=== PATIENT | female | born 1955 | race Caucasian/White ===

== ENCOUNTER 2016-11-19 16:15 | Observation (INO) | payer MEDICARE ==
[2016-11-19] MEDS ORDERED: Aspirin Low Dose CHEW TAB* 81 MG PO ONE (16:34)
[2016-11-19 17:03] LABS: Albumin 3.8 g/dL (3.2-5.2); BUN/Creatinine Ratio 23.9 (8-20); Calcium 9.3 mg/dL (8.6-10.3); EGFR African American 80.4 (>60); EGFR Non-African American 62.5 (>60); Globulin 3.5 g/dL (2-4); Potassium 4.4 mmol/L (3.5-5.0); Total Bilirubin 0.5 mg/dL (0.2-1.0); Total Protein 7.3 g/dL (6.4-8.9)
--- NOTE | 2016-11-19 17:07 | RAD ---
Indication: Chest pain. Single frontal view of the chest performed at 0446 hours was reviewed. Comparison is made with previous exam dated April 28, 2013. No mediastinal shift is noted. Heart is of normal size and configuration. Lung evans appear clear. Patient is status post transsternal thoracotomy. Lung evans are clear IMPRESSION: NO ACTIVE CARDIOPULMONARY DISEASE IS NOTED.
[2016-11-19 17:08] LABS: Troponin I 0.04 ng/mL (<0.04)
[2016-11-19 18:04] LABS: Hematocrit 43 % (35-47); Hemoglobin 14.6 g/dl (12.0-16.0); Mean Corpuscular HGB Conc 34 g/dl (31-36); Mean Corpuscular Hemoglobin 32 pg (27-31); Mean Corpuscular Volume 95 fL (80-97); Mean Platelet Volume 8 um3 (7.4-10.4); Red Blood Count 4.57 10^6/ul (4.0-5.4); Red Cell Distribution Width 14 % (10.5-15)
[2016-11-19] MEDS ORDERED: Acetaminophen TAB* 325 MG PO PRN (18:21)
[2016-11-19] MEDS ORDERED: ALPRAZolam TAB* 0.25 MG PO PRN (18:21)
[2016-11-19] MEDS: HYDROcodone/ACETAMIN 5-325 MG* 1 TAB PO PRN ×2 (18:37→23:38)
[2016-11-19] MEDS ORDERED: tiZANidine TAB* 2 MG PO SCH (19:00)
[2016-11-19] MEDS ORDERED: Enoxaparin(*) 40 MG/0.4 ML SYR SUBCUT SCH (19:00)
[2016-11-19] MEDS: tiZANidine TAB* 2 MG PO PRN (19:02)
--- NOTE | 2016-11-19 19:16 | ED ---
Laverne Gusman Thomas, scribed for Molina Sandhu MD on 11/19/16 at 1718 . HPI Chest Pain - HPI Summary HPI Summary: The pt is a 61 y/o F referred from her framing inspector (Dr. Reddy) after a test performed today revealed new onset first degree LBBB. In the ED, the pt c/o intermittent CP rated 5/10 that began two days ago. The pain is described as "pressure" and the pain radiates to the L arm, hand, shoulder, neck, and jaw. Her pain has worsened since yesterday (now it is "deeper"). Her CP is worsened noticeably with exertion. The pt's CP is normally alleviated by NTG, but her prescription has run out (she has only used NTG once in the last ten years). She additionally c/o SOB (with exertion). She denies nausea and diaphoresis. The pt was hiking earlier today before her visit to her framing inspector. The pt took 81 mg ASA and was given 243 mg ASA in the ED. PMHx: IA, HLD, fibromyalgia, GERD. PSHx: cholecystectomy. She denies a PMHx of blood clots. She reports that this feeling of discomfort is similar to her last IA. - History of Current Complaint Chief Complaint: EDChestPainROMI Time Seen by Provider: 11/19/16 16:49 Hx Obtained From: Patient Onset/Duration: Started Days Ago - 2 days, Still Present, Worse Since - yesterday Timing: Intermittent Current Severity: Moderate Pain Intensity: 5 Pain Scale Used: 0-10 Numeric Chest Pain Radiates: Yes Chest Pain Radiates To:: Shoulder, Arm, Jaw, Neck, Other - POS: hand Character: Pressure/Squeezing Aggravating Factor(s): Exertion Alleviating Factor(s): NTG 123 - normally, but her prescriptoin has run out Associated Signs and Symptoms: Positive: Chest Pain - radiates to L arm, hand, shoulder, neck, jaw, Shortness of Breath. Negative: Diaphoresis, Nausea Related History: Similar Episode/Dx as: - her last IA - Allergy/Home Medications Allergies/Adverse Reactions: Allergies Allergy/AdvReac Type Severity Reaction Status Date / Time Morphine Allergy Unknown See Comment Verified 11/19/16 16:53 Codeine Allergy Rash Verified 11/19/16 16:53 Naloxone [From Talwin Nx] Allergy Rash Verified 11/19/16 16:53 Pentazocine [From Talwin Nx] Allergy Rash Verified 11/19/16 16:53 Propoxyphene [From Darvon] Allergy Rash Verified 11/19/16 16:53 Fentanyl AdvReac Hallucinati Verified 11/19/16 16:53 ons Meperidine [From Demerol HCl] AdvReac Itching Verified 11/19/16 16:53 Sumatriptan [From Imitrex] AdvReac severe Verified 11/19/16 16:53 anxiety Home Medications: Home Medications ALPRAZolam TAB* [Xanax TAB*] 0.25 - 0.5 mg PO Q6H PRN MDD 2 mg 11/19/16 [ History Confirmed 11/19/16] Acetaminophen [Acetaminophen Extra Stren] 1,000 mg PO BID PRN 11/19/16 [History Confirmed 11/19/16] Cholecalciferol TAB* [Vitamin D TAB*] 400 unit PO QAM 11/19/16 [History Confirmed 11/19/16] Hydrocodone-Acetaminophen [Lorcet Plus 7.5-325 mg] 1 tab PO TID PRN 11/19/16 [ History Confirmed 11/19/16] LoraTADine TAB(NF) [Claritin 10 MG TAB(NF)] 10 mg PO QAM 11/19/16 [History Confirmed 11/19/16] Misc Natural Products [Glucosamine Chondroitin T] 1 tab PO QAM 11/19/16 [ History Confirmed 11/19/16] [place]-3 Fatty Acids (Nf) [Fish Oil (NF)] 1,500 mg PO DAILY 11/19/16 [History Confirmed 11/19/16] Tizanidine HCl [Zanaflex] 4 mg PO TID PRN 11/19/16 [History Confirmed 11/19/16] metFORMIN* [Glucophage 500 MG TAB *] 500 mg PO BID 11/19/16 [History Confirmed 11/19/16] PMH/Surg Hx/FS Hx/Imm Hx Previously Healthy: No Endocrine/Hematology History: Reports: Hx Diabetes, Hx Thyroid Disease Cardiovascular History: Denies: Hx Hypertension GI History: Reports: Hx Gastroesophageal Reflux Disease History: Denies: Hx Dialysis, Hx Renal Disease Musculoskeletal History: Reports: Hx Arthritis, Hx Back Problems, Hx Fibromyalgia Sensory History: Reports: Hx Contacts or Glasses Opthamlomology History: Reports: Hx Contacts or Glasses Neurological History: Reports: Hx Headaches Psychiatric History: Reports: Hx Anxiety, Hx Depression - Cancer History Cancer Type, Location and Year: cervical ca - Surgical History Surgery Procedure, Year, and Place: hx of heart cath 2011; 2 VESSEL CABG 2006- [facility], CARDIAC CATH X2, CARPAL TUNNEL, CHOLECYSTECTOMY, T&A , D&C, HYSTERECTOMY, ABD HERNIA REPAIR, Infectious Disease History: No Infectious Disease History: Denies: Traveled Outside the [place] in Last 30 Days - Family History Known Family History: Positive: Cardiac Disease - father, , Other - POS : pancreatic CA, mother - Social History Alcohol Use: None Substance Use Type: Reports: Prescribed Substance Use Comment - Amount & Last Used: hydrocodone Smoking Status (MU): Former Smoker Type: Cigarettes Review of Systems Constitutional: Negative Negative: Skin Diaphoresis Eyes: Negative ENT: Negative Positive: Chest Pain - intermittent, onset 2 days ago, 5/10, radiates to L arm, hand, shoulder, neck, jaw Positive: Shortness Of Breath - with exertion Gastrointestinal: Negative Negative: Nausea Genitourinary: Negative Musculoskeletal: Negative Skin: Negative Neurological: Negative Psychological: Normal All Other Systems Reviewed And Are Negative: Yes Physical Exam - Summary Physical Exam Summary: Gen: well-appearing, no pain distress Skin: warm, color, dry Head: normal Eyes: EOMI, FLOYD ENT: normal Neck: supple, nontender Resp: CTA, breath sounds present Cardio: RRR Abd: soft, nontender Bowel: present Musc: normal, strength/ROM intact Neuro: normal, sensory/motor intact, A&O x3 Psych: affect/mood appropriate Triage Information Reviewed: Yes Vital Signs On Initial Exam: Initial Vitals Pulse Resp BP Pulse Ox 82 15 148/88 99 11/19/16 16:21 11/19/16 16:21 11/19/16 16:21 11/19/16 16:21 Vital Signs Reviewed: Yes - [place] Coma Scale Coma Scale Total: 15 Diagnostics - Vital Signs Vital Signs Temp Pulse Resp BP Pulse Ox 11/19/16 16:44 95 11/19/16 16:22 97.3 F 79 25 148/88 96 11/19/16 16:21 82 15 148/88 99 - Laboratory Lab Results: Lab Results 11/19/16 11/19/1611/19/17 Range/Units 16:40 16:40 16:40 WBC 5.0 (3.5-10.8) 10^3/ul RBC 4.57 (4.0-5.4) 10^6/ul Hgb 14.6 (12.0-16.0) g/dl Hct 43 (35-47) % MCV 95 (80-97) fL MCH 32 H (27-31) pg MCHC 34 (31-36) g/dl RDW 14 (10.5-15) % Plt Count 209 (150-450) 10^3/ul MPV 8 (7.4-10.4) um3 Neut % (Auto) 56.5 (38-83) % Lymph % (Auto) 31.9 (25-47) % [place] % (Auto) 8.9 (1-9) % Eos % (Auto) 2.3 (0-6) % Baso % (Auto) 0.4 (0-2) % Absolute Neuts (auto) 2.8 (1.5-7.7) 10^3/ul Absolute Lymphs (auto) 1.6 (1.0-4.8) 10^3/ul Absolute Monos (auto) 0.4 (0-0.8) 10^3/ul Absolute Eos (auto) 0.1 (0-0.6) 10^3/ul Absolute Basos (auto) 0 (0-0.2) 10^3/ul Absolute Nucleated RBC 0 10^3/ul Nucleated RBC % 0 INR (Anticoag Therapy) (0.89-1.11) Sodium 136 (133-145) mmol/L Potassium 4.4 (3.5-5.0) mmol/L Chloride 103 (101-111) mmol/L Carbon Dioxide 26 (22-32) mmol/L Anion Gap 7 (2-11) mmol/L BUN 22 (6-24) mg/dL Creatinine 0.92 (0.51-0.95) mg/dL Est GFR ( Amer) 80.4 (>60) Est GFR (Non-Af Amer) 62.5 (>60) BUN/Creatinine Ratio 23.9 H (8-20) Glucose 96 (70-100) mg/dL Lactic Acid 1.5 (0.5-2.0) mmol/L Calcium 9.3 (8.6-10.3) mg/dL Total Bilirubin 0.50 (0.2-1.0) mg/dL AST 30 (13-39) U/L ALT 29 (7-52) U/L Alkaline Phosphatase 57 (34-104) U/L Troponin I 0.04 H* (<0.04) ng/mL Total Protein 7.3 (6.4-8.9) g/dL Albumin 3.8 (3.2-5.2) g/dL Globulin 3.5 (2-4) g/dL Albumin/Globulin Ratio 1.1 (1-3) Lipase 31 (11.0-82.0) U/L 11/19/16 Range/Units 16:40 WBC (3.5-10.8) 10^3/ul RBC (4.0-5.4) 10^6/ul Hgb (12.0-16.0) g/dl Hct (35-47) % MCV (80-97) fL MCH (27-31) pg MCHC (31-36) g/dl RDW (10.5-15) % Plt Count (150-450) 10^3/ul MPV (7.4-10.4) um3 Neut % (Auto) (38-83) % Lymph % (Auto) (25-47) % [place] % (Auto) (1-9) % Eos % (Auto) (0-6) % Baso % (Auto) (0-2) % Absolute Neuts (auto) (1.5-7.7) 10^3/ul Absolute Lymphs (auto) (1.0-4.8) 10^3/ul Absolute Monos (auto) (0-0.8) 10^3/ul Absolute Eos (auto) (0-0.6) 10^3/ul Absolute Basos (auto) (0-0.2) 10^3/ul Absolute Nucleated RBC 10^3/ul Nucleated RBC % INR (Anticoag Therapy) 0.92 (0.89-1.11) Sodium (133-145) mmol/L Potassium (3.5-5.0) mmol/L Chloride (101-111) mmol/L Carbon Dioxide (22-32) mmol/L Anion Gap (2-11) mmol/L BUN (6-24) mg/dL Creatinine (0.51-0.95) mg/dL Est GFR ( Amer) (>60) Est GFR (Non-Af Amer) (>60) BUN/Creatinine Ratio (8-20) Glucose (70-100) mg/dL Lactic Acid (0.5-2.0) mmol/L Calcium (8.6-10.3) mg/dL Total Bilirubin (0.2-1.0) mg/dL AST (13-39) U/L ALT (7-52) U/L Alkaline Phosphatase (34-104) U/L Troponin I (<0.04) ng/mL Total Protein (6.4-8.9) g/dL Albumin (3.2-5.2) g/dL Globulin (2-4) g/dL Albumin/Globulin Ratio (1-3) Lipase (11.0-82.0) U/L Result Diagrams: 11/19/16 16:40 11/19/16 16:40 Lab Statement: Any lab studies that have been ordered have been reviewed, and results considered in the medical decision making process. - Radiology CXR Xray Interpretation: No Acute Changes - No active cardiopulmonary disease is noted. Radiology Interpretation Completed By: Radiologist - EKG 16:34 Cardiac Rate: NL - 73 BPM EKG Interpretation: LBBB. No ectopy Chest Pain Course/Dx - Course Course Of Treatment: NO CRITICAL CARE TIME. DISCUSSED RESULTS WITH PATIENT/ FAMILY AND CARDIOLOGY, DR REDDY. ADMIT HOSPITALIST STABLE. - Diagnoses Provider Diagnoses: Chest pain, Elevated troponin - Provider Notifications Discussed Care Of Patient With: Garth Reddy Time Discussed With Above Provider: 17:40 Instructed by Provider To: Other - Discussed patient and Dr. Reddy recommended to admit. Also discussed case with Dr. Robertson, hospitalist, at 17:45. He is admitting the patient. Discharge - Discharge Plan Condition: Stable Disposition: ADMITTED TO [facility] documentation as recorded by the Laverne estrada Thomas accurately reflects the service I personally performed and the decisions made by me, Molina Sandhu MD.
[2016-11-19] MEDS ORDERED: Amitriptyline TAB* 100 MG PO SCH (21:00)
[2016-11-19] MEDS ORDERED: diPHENhydraMINE PO* 25 MG PO SCH (21:00)
[2016-11-19] MEDS: ALPRAZolam TAB* 0.5 MG PO SCH (22:38)
[2016-11-19] MEDS: metFORMIN* 500 MG TAB PO SCH (22:40)
--- NOTE | 2016-11-19 22:57 | HP ---
CC: Eleni Grace NP HISTORY AND PHYSICAL: DATE OF ADMISSION: 11/19/16 PRIMARY CARE PHYSICIAN: Eleni Grace NP CHIEF COMPLAINT: Chest pressure. HISTORY OF PRESENT ILLNESS: Ms. Padilla is a 61-year-old female with a past medical history of C AD, proximal LAD dissection with emergent CABG, GERD, diabetes, depression, hypothyroidism, fibromya lgia, hyperlipidemia, diabetes, who presents to the hospital with exertional chest pressure. The pa tim has been seeing Dr. Reddy as an outpatient for cardiac clearance for hernia surgery, which wi ll be done by Dr. Noel. She saw him about 1 week ago and was noted on EKG at that time to have a new left bundle branch block. She was set up for an appointment with him for an echocardiogram toda y. She states that beginning yesterday morning while at [employer], she noticed some chest pressure, st ates it was in the midsternal area, radiated into the left shoulder, left jaw and also felt some num bness and tingling down her left arm. It was present throughout the day yesterday and seemed to be associated with exertion, did not have any associated nausea, vomiting or diaphoresis. This morning when she woke up, she felt well, but again as she started walking around outside, the symptoms recu rred. She went to Dr. Reddy today to have an echocardiogram done, which was completed there. She discussed these symptoms with Dr. Reddy and he sent her to the hospital for further evaluation. Verna montanez states that these symptoms are similar to her previous symptoms she felt when she had heart proble ms in the past. She has no recent fever, chills, abdominal pain, diarrhea, constipation, hematuria, bright red blood per rectum, melena, dysuria. Her chronic pain seems to be about baseline. PAST MEDICAL HISTORY: CAD, after stent placement had proximal LAD dissection and required an urgent CABG; fibromyalgia; hypothyroidism; GERD; depression; anxiety; diabetes; hyperlipidemia. PAST SURGICAL HISTORY: CABG, lap chuy, hysterectomy, tubal ligation, hernia repair and tonsillecto my. HOME MEDICATIONS: 1. Metformin 500 mg by mouth 2 times daily. 2. Benadryl 25 mg by mouth at bedtime. 3. Zanaflex 4 mg by mouth 3 times daily as needed for pain. 4. Sertraline 50 mg by mouth daily. 5. Omeprazole 20 mg by mouth daily. 6. Fish oil 1500 mg by mouth daily. 7. Multivitamin 1 tablet by mouth daily. 8. Glucosamine/chondroitin 1 tablet by mouth daily. 9. Loratadine 10 mg by mouth daily. 10. Synthroid 175 mcg by mouth daily. 11. Ibuprofen 800 mg by mouth 2 times daily as needed for pain. 12. Lorcet 7.5-325 one tablet by mouth 3 times daily as needed for pain. 13. Cholecalciferol 400 units by mouth daily. 14. Calcium carbonate. 15. Vitamin E 1 tablet by mouth daily. 16. Aspirin 81 mg by mouth daily. 17. Vitamin C 500 mg by mouth daily. 18. Amitriptyline 100 mg by mouth at bedtime. 19. Tylenol 1000 mg by mouth 2 times daily as needed for pain. 20. Xanax 0.5 mg by mouth 2 times daily and 0.25-0.5 mg by mouth every 6 hours as needed for anxiet y. ALLERGIES: The patient has allergies to MORPHINE, CODEINE, NALOXONE, PENTAZOCINE, PROPOXYPHENE, FEN TANYL, MEPERIDINE, SUMATRIPTAN. FAMILY HISTORY: Significant for father who of an RI at age 79. Mother with GERD, hiatal herni a, of pancreatic cancer. Brother with CAD, diabetes and hypertension. Sister with kidney fail ure and lupus. SOCIAL HISTORY: The patient is a former [id number] smoker. Denies any alcohol use. States she i s on medical marijuana for her chronic pain. REVIEW OF SYSTEMS: A 12-point review of systems is negative except for that as noted in the HPI. PHYSICAL EXAMINATION GENERAL: The patient is a middle-aged female, lying in bed, in no apparent distress. VITAL SIGNS: On admission, temperature 97.3, heart rate of 79, respiratory rate of 25, O2 saturatio n 96% on room air, blood pressure 148/88. HEENT: Head normocephalic, atraumatic. Eyes: Pupils equal, round and reactive to light and accomm odation. Anicteric sclerae. ENT: Moist mucous membranes. No cervical adenopathy. LUNGS: Clear to auscultation bilaterally. No wheezes, rales or rhonchi. CARDIOVASCULAR: Regular rate and rhythm. S1 and S2 present. No murmurs, gallops, or rubs. ABDOMEN: Obese, soft, nontender, nondistended. Bowel sounds positive. EXTREMITIES: No cyanosis, clubbing, or edema. NEUROLOGIC: The patient is alert and oriented x3. No focal neurological deficits. Skin is warm, dr y, and well perfused. LAB DATA/DIAGNOSTIC STUDIES: White blood cell count of 5, hematocrit of 43, platelets of 209. INR 0.92. Sodium 136, potassium 4.4, chloride of 103, carbon dioxide 26, BUN of 22, creatinine of 0.92 , glucose of 96. Lactic acid of 1.5. LFTs within normal limits. Troponin is 0.04. Lipase is 31. Chest x-rays, personally reviewed, shows no acute disease. EKG shows left bundle-branch block, whic h is new as of one week ago. Although, today's EKG look similar to the one done a week ago. ASSESSMENT AND PLAN: Exertional chest pain with newly found left bundle branch block in a 61-year-o ld female with a past medical history of coronary artery disease, fibromyalgia, hypothyroidism, shaquille roesophageal reflux disease, depression, anxiety, diabetes, hyperlipidemia. 1. Exertional chest pain. The patient states it is certainly concerning for cardiac etiology, has a mildly elevated troponin of 0.04. We will continue to trend these for now. The patient is not on a beta-juan at home, states she was never placed on one in the past. We will hold off on starti ng one for now. She received 324 of aspirin. We will continue 81 mg by mouth daily. The patient h as an intolerance to statins. We will monitor the patient on telemetry and continue to trend her tr oponins. If they remain at this level, we will plan for nuclear cardiac stress test in the morning. If the patient's troponin trend up further, we would probably put her on additional medications an d treat this as acute coronary syndrome. The patient has made it clear that if she is to require ca theterization, she would want this done at [facility] due to her complicated anatomy. 2. Fibromyalgia. Continue home pain medications. 3. Gastroesophageal reflux disease. Continue home PPI. 4. Hypothyroidism. Continue home Synthroid. 5. Diabetes. Continue home metformin. 6. Hyperlipidemia. The patient cannot tolerate statins. She was recently recommended by Dr. Horace marc to start Zetia. We will check an LDL tomorrow morning. 7. DVT prophylaxis. Lovenox subcu. 8. Code status. The patient is a full code. TIME SPENT: Total time spent on this admission 45 minutes with over half the time spent face-to-fac e with the patient in counseling and coordinating care. [id number]/CPS #: [id number]
[2016-11-20] MEDS ORDERED: Ketorolac INJ* 15 MG/ML 1 ML VIAL IV ONE (03:40)
[2016-11-20] MEDS: tiZANidine TAB* 2 MG PO PRN (03:56)
[2016-11-20] MEDS: HYDROcodone/ACETAMIN 5-325 MG* 1 TAB PO PRN (05:41)
[2016-11-20] MEDS ORDERED: Levothyroxine TAB* 100 MCG TAB PO SCH (06:00)
[2016-11-20] MEDS ORDERED: Levothyroxine TAB* 75 MCG TAB PO SCH (06:00)
[2016-11-20 07:25] LABS: HDL Cholesterol 37.8 mg/dL
[2016-11-20] MEDS ORDERED: Omeprazole CAP* 20 MG PO SCH (07:30)
[2016-11-20] MEDS: ALPRAZolam TAB* 0.5 MG PO SCH (08:30)
[2016-11-20] MEDS ORDERED: Aspirin Low Dose CHEW TAB* 81 MG PO SCH (09:00)
[2016-11-20] MEDS ORDERED: Sertraline* 50 MG TAB PO SCH (09:00)
[2016-11-20] MEDS ORDERED: Ascorbic Acid TAB* 500 MG PO SCH (09:00)
[2016-11-20] MEDS ORDERED: Cholecalciferol TAB* 400 UNIT PO SCH (09:00)
[2016-11-20] MEDS: metFORMIN* 500 MG TAB PO SCH (09:33)
[2016-11-20 13:26] VITALS: BP 112/70
--- NOTE | 2016-11-20 13:36 | DCNOTE ---
Patient seen this morning. Asymptomatic aside from her chronic pain. Ambulated around the unit with Dr. Reddy. On exam, RRR, s1 and s2 present, no m/g/r, abd soft, NTND, BS+, lungs CTA B/L No events on tele, troponins have not increased. Discharge home today with plans for outpatient stress test on 11/23 as planned. F/ U with Dr. Reddy and Dr. Marte.
--- NOTE | 2016-11-20 13:50 | CONSULT ---
Subjective Date of Service: 11/20/16 Interval History: Date of admission 11/19/2016 Date of consult 11/20/2016 Service: Hospitalist, Dr. Robertson, PCP: Eleni Grace PACKAGE SEALER, CC: Chest pain Reason for consult: Chest pain HPI Leigh Padilla is a 61 year old woman I recently saw for preoperative evaluation. During her echocardiogram yesterday she mentioned that she had chest pain radiating into her left neck and arm all day Saturday that lasted all day but worse with exertion. Resolved by Saturday but started walking around and returned. This was the same kind of discomfort in the setting of a LBBB that prompted a coronary angiogram in 2012 that did not show any culprit for myocardial ischemia. The echocardiogram showed an LVEF of 50-55% and septal abnormal wall motion consistent with LBBB. She was advised to come to the ER. She has a low level troponin detection without any rise and fall suggestive of ACS. Her EKG shows a LBBB (old since at least 2012). She has been pain free all day today. Stress tests aren't available today because of November 20 holiday. She wants to go home and have the stress test this Saturday as originally planned and already scheduled. I ambulated with her two times around [address] [place] [address] along with her Malcolm and she did not have any chest, neck or arm discomfort at that time. Current meds prior to visit: Aspir-81 81 mg 1 po qd Levothyroxine Sodium 175 mcg taking 150 mg 1 po qd Amitriptyline HCL 100 mg 1 po qd Alprazolam 0.5 mg 1 po bid prn Vitamin D-1000 1000 Unit 2 po qd Fish Oil Double Strength 1500mg 1 daily Hydrocodone-Acetaminophen 7.5-325 mg take one capsule/tablet by mouth three times a day as needed for acute pain Tizanidine HCL 4 mg 1 by mouth three times daily as needed Metformin HCL 500 mg 1 by mouth twice a day Nitrostat 0.4 mg one sl q5min up to 3 doses as needed Zoloft 50 mg 1 by mouth every day Loratadine 10 mg 1 by mouth every day Motrin Ib 200 mg 4 tabs twice a day as needed Prilosec OTC 20 mg 1 by mouth every day Vitamin C 500 mg 1 by mouth every day Multivitamin/Extra Vitamin D3 Adult Shae D3 1 daily Calcium 600-D 600-400 MG-Unit 1 by mouth once a day Benadryl Allergy 25 mg 2 tablet at bed time, as needed Glucosamine Chondroitin Triple Strength 1 daily Xanax 0.5 mg Twice a day at 0800 and HS Acetaminophen Extra Strength 500 mg 2 tabs 3 times daily as needed for pain Ultram ER 100 mg tid prn medication list reviewed verbally and patient list on 11/08/2016 Allergies:Morphine 07/31/11 Codeine 07/31/11 Darvon 07/31/11 Demerol 07/31/11 Fentanyl 07/31/11 Lortab 07/31/11 Imitrex 07/31/11 Talwin Nx 07/31/11 Erythromycin 11/01/16 Statins 11/08/16 - multiple statins caused elevated LFT's allergy list reviewed on 11/08/2016 PMH: Medical Problems: Coronary Artery Disease (CAD)/coronary dissection Chronic Pain Syndrome Diabetes Type II Hypertension Hypothyroidism Surgical Hx: Coronary Artery Bypass Graft (CABG) - (08/05/2006) Laparoscopy, Cholecystectomy, Tubal Ligation, Hysterectomy, Hernia Repair Cardiac Testing: Cardiac Catheterization - (08/03/2006) Indication chest pain, anterior wall ischemia on stress test: R femoral Dr. Brooks: IVUS guided pLAD stent to coronary dissection Cardiac Catheterization - (08/05/2006) Dr. Taty Meyer' indication chest pain. Residual proximal LAD dissection unable to intervene on Cardiac Catheterization - (07/23/2012) [facility] femoral: indication chest pain and LBBB: Atretic KUHN graft, patent pLAD stent followed by 50-60% lesion, SVG-diagonal widely patent which fills LAD antegade and retrograde, no significant RCA or Lcx disease, LVEF 55% Multi-Vessel Coronary Artery Bypass Grafting - (08/05/2016) at [facility], Dr. Nj, off-pump. Indication failed PCI for pLAD spontaneous dissection: KUHN-LAD , SVG-diagonal FH: Father: due to RI - (11/02/2016) age 79. Mother: Gastroesophageal Reflux Disease (GERD), hiatal hernia. due to Pancreatic Cancer - age 89. SH: Marital: .Lives With: Family. 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 She takes various medications and treat this pain and she readily admits it interferes with her cognition and keeps her from being able to have clear memory recall. Personal Habits: Smoking: Patient is a former smoker quit 2006 at time of dissection Alcohol: Denies alcohol use.Drug Use: Current Drug User - marijuana use to assist with ADL's.Daily Caffeine: Consumes on average 3 cups of hot tea per day.Exercise Type: ROS: Const: Denies decreased energy and weight gain Eyes: Denies visual disturbance or change in visio ENMT: Denies hearing difficultly or drainage CV: Denies, claudication, edema, palpitations and syncope. + chest pain as described above Resp: Denies cough, dyspnea and hemoptysis. GI: Denies abdominal pain, bleeding, constipation and diarrhea. : Denies difficulty voiding, hematuria and kidney disease. Musculo: Reports arthritis and trouble walking. Skin: Denies growths and rash. Neuro: Denies aphasia, headache and weakness. Psych: Reports anxiety and depression. Endocrine: Reports diabetes and thyroid disease. Omi/Lymph: Denies bleeding/clotting disorder. Allergy/Immuno: Denies chills and fever. Medications Active Medications: Acetaminophen (Tylenol Tab*) 975 mg PO BID PRN PRN Reason: PAIN Last Admin: 11/20/16 08:30 Dose: 975 mg Hydrocodone Bitart/Acetaminophen (Omega 5-325 Tab*) 1 tab PO TID PRN PRN Reason: PAIN Last Admin: 11/20/16 05:41 Dose: 1 tab Alprazolam (Xanax Tab*) 0.25 mg PO Q6H PRN PRN Reason: ANXIETY Alprazolam (Xanax Tab*) 0.5 mg PO BID [facility] Last Admin: 11/20/16 08:30 Dose: 0.5 mg Amitriptyline HCl (Elavil Tab*) 100 mg PO BEDTIME [facility] Last Admin: 11/19/16 22:37 Dose: 100 mg Ascorbic Acid (Vitamin C Tab*) 500 mg PO QAM [facility] Last Admin: 11/20/16 09:33 Dose: 500 mg Aspirin (Aspirin Low Dose Tab*) 81 mg PO QAM [facility] Last Admin: 11/20/16 09:33 Dose: 81 mg Cholecalciferol (Vitamin D Tab*) 400 unit PO QAM [facility] Last Admin: 11/20/16 09:33 Dose: 400 unit Diphenhydramine HCl (Benadryl Po*) 25 mg PO BEDTIME [facility] Last Admin: 11/19/16 22:37 Dose: 25 mg Enoxaparin Sodium (Lovenox(*)) 40 mg SUBCUT Q24H [facility] Last Admin: 11/19/16 19:28 Dose: 40 mg Levothyroxine Sodium (Synthroid Tab*) 100 mcg PO DAILY@0600 [facility] Last Admin: 11/20/16 05:33 Dose: 100 mcg Levothyroxine Sodium (Synthroid Tab*) 75 mcg PO DAILY@0600 [facility] Last Admin: 11/20/16 05:33 Dose: 75 mcg Metformin HCl (Glucophage*) 500 mg PO BID [facility] Last Admin: 11/20/16 09:33 Dose: 500 mg Omeprazole (Prilosec Cap*) 20 mg PO DAILY@0730 [facility] Last Admin: 11/20/16 09:33 Dose: 20 mg Sertraline HCl (Zoloft*) [facility] Last Admin: 11/20/16 09:33 Dose: 50 mg Tizanidine HCl (Zanaflex Tab*) 4 mg PO Q8H PRN PRN Reason: PAIN Last Admin: 11/20/16 03:56 Dose: 4 mg Home Medications: ALPRAZolam TAB* [Xanax TAB*] 0.5 mg PO BID 10/15/12 [History Confirmed 11/19/16] Amitriptyline TAB* [Elavil TAB*] 100 mg PO BEDTIME 10/15/12 [History Confirmed 11/19/16] Ascorbic Acid TAB* [Vitamin C TAB*] 500 mg PO QAM 10/15/12 [History Confirmed 11/19/16] Aspirin Low Dose CHEW TAB* [Aspirin Low Dose TAB*] 81 mg PO [facility] 10/15/12 [ History Confirmed 11/19/16] Calcium Carbonate-Cholecalcife [Calcium + D3 600-200 mg-Unit] 1 tab PO DAILY [History Confirmed 11/19/16] Ibuprofen TAB* [Advil TAB*] 800 mg PO BID PRN 10/15/12 [History Confirmed ] Levothyroxine TAB (NF) [Synthroid TAB (NF)] 175 mcg PO DAILY 10/15/12 [History Confirmed 11/19/16] Multivitamins/Minerals TAB* [Thera M Plus TAB*] 1 tab PO QAM 10/15/12 [History Confirmed 11/19/16] Omeprazole CAP* [Prilosec CAP* 20 MG] 20 mg PO DAILY 10/15/12 [History Confirmed 11/19/16] Sertraline* [Zoloft*] 50 mg PO QAM 10/15/12 [History Confirmed 11/19/16] diPHENhydraMINE PO* [Benadryl PO 25 MG TAB*] 25 mg PO BEDTIME 10/15/12 [History Confirmed 11/19/16] ALPRAZolam TAB* [Xanax TAB*] 0.25 - 0.5 mg PO Q6H PRN MDD 2 mg 11/19/16 [ History Confirmed 11/19/16] Acetaminophen [Acetaminophen Extra Stren] 1,000 mg PO BID PRN 11/19/16 [History Confirmed 11/19/16] Cholecalciferol TAB* [Vitamin D TAB*] 400 unit PO QAM 11/19/16 [History Confirmed 11/19/16] Hydrocodone-Acetaminophen [Lorcet Plus 7.5-325 mg] 1 tab PO TID PRN 11/19/16 [ History Confirmed 11/19/16] LoraTADine TAB(NF) [Claritin 10 MG TAB(NF)] 10 mg PO QAM 11/19/16 [History Confirmed 11/19/16] Misc Natural Products [Glucosamine Chondroitin T] 1 tab PO QAM 11/19/16 [ History Confirmed 11/19/16] Putnam-3 Fatty Acids (Nf) [Fish Oil (NF)] 1,500 mg PO DAILY 11/19/16 [History Confirmed 11/19/16] Tizanidine HCl [Zanaflex] 4 mg PO TID PRN 11/19/16 [History Confirmed 11/19/16] metFORMIN* [Glucophage 500 MG TAB *] 500 mg PO BID 11/19/16 [History Confirmed 11/19/16] Nitroglycerin TAB 0.4 MG* 0.4 mg SL Q5M PRN #15 tab 11/20/16 [Rx] Review of Systems - Measurements Intake and Output: Intake and Output Last 24 Hours 11/18/16 11/19/16 11/20/16 11/21/16 06:59 06:59 06:59 06:59 Intake Total 400 Balance 400 Weight 234 lb Intake: Oral 400 Other: Estimated Void Medium # Bowel Movements 0 # Voids 1 - Review of Systems Review of Systems Statement: All other review of systems negative, unless stated above. Objective Vital Signs: Temp Pulse Resp BP Pulse Ox 98.7 F 67 16 112/70 98 11/20/16 07:53 11/20/16 11:42 11/20/16 10:30 11/20/16 11:42 11/20/16 11:42 Appearance: nad pleasant Ears/Nose/Mouth/Throat: Clear Oropharnyx, Mucous Membranes Moist Neck: NL Appearance and Movements; NL JVP Respiratory: Symmetrical Chest Expansion and Respiratory Effort, Clear to Auscultation Cardiovascular: NL Sounds; No Murmurs; No JVD, RRR, No Edema Abdominal: NL Sounds; No Tenderness; No Distention Extremities: No Edema, No Clubbing, Cyanosis Skin: No Rash or Ulcers Neurological: Alert and Oriented x 3 Laboratory Results: 11/19/16 16:40 11/19/16 16:40 INR (Anticoag Therapy) 0.92 (0.89-1.11) 11/19/16 16:40 Total Bilirubin 0.50 mg/dL (0.2-1.0) 11/19/16 16:40 AST 30 U/L (13-39) 11/19/16 16:40 ALT 29 U/L (7-52) 11/19/16 16:40 Alkaline Phosphatase 57 U/L (34-104) 11/19/16 16:40 Total Protein 7.3 g/dL (6.4-8.9) 11/19/16 16:40 Albumin 3.8 g/dL (3.2-5.2) 11/19/16 16:40 Globulin 3.5 g/dL (2-4) 11/19/16 16:40 Albumin/Globulin Ratio 1.1 (1-3) 11/19/16 16:40 Triglycerides 256 mg/dL 11/20/16 06:41 Cholesterol 240 mg/dL 11/20/16 06:41 LDL Cholesterol 151 mg/dL 11/20/16 06:41 HDL Cholesterol 37.8 mg/dL 11/20/16 06:41 11/19/16 11/19/16 11/19/16 16:40 20:27 23:32 Troponin I 0.04 H* 0.04 H* 0.04 H* Diagnostic Imagin11/19/16 16:40 11/19/16 16:40 INR (Anticoag Therapy) 0.92 (0.89-1.11) 11/19/16 16:40 Total Bilirubin 0.50 mg/dL (0.2-1.0) 11/19/16 16:40 AST 30 U/L (13-39) 11/19/16 16:40 ALT 29 U/L (7-52) 11/19/16 16:40 Alkaline Phosphatase 57 U/L (34-104) 11/19/16 16:40 Total Protein 7.3 g/dL (6.4-8.9) 11/19/16 16:40 Albumin 3.8 g/dL (3.2-5.2) 11/19/16 16:40 Globulin 3.5 g/dL (2-4) 11/19/16 16:40 Albumin/Globulin Ratio 1.1 (1-3) 11/19/16 16:40 Triglycerides 256 mg/dL 11/20/16 06:41 Cholesterol 240 mg/dL 11/20/16 06:41 LDL Cholesterol 151 mg/dL 11/20/16 06:41 HDL Cholesterol 37.8 mg/dL 11/20/16 06:41 11/19/16 11/19/16 11/19/16 16:40 20:27 23:32 Troponin I 0.04 H* 0.04 H* 0.04 H* EKG Data: ekg 11/19/2016: NSR, LBBB Assessment/Plan Complex cardiac history as described above but no evidence of ACS by rise and fall of troponin in the setting of prolonged chest pain. She is now asymptomatic and she requests to go home and complete her stress test this Saturday as originally planned. 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 I did advise that she keep with her a new prescription for SL NTG which will need a refill and she knows the protocol for SL NTG use and when to call 911.
--- NOTE | 2016-11-20 17:52 | DS ---
CC: Eleni Grace NP; Dr. Garth Reddy * DISCHARGE SUMMARY: DATE OF ADMISSION: 11/19/16 DATE OF DISCHARGE: 11/20/16 PRIMARY CARE PROVIDER: Eleni Grace NP TRANSFER STATION ATTENDANT: Dr. Garth Reddy. PRINCIPAL DISCHARGE DIAGNOSIS: Exertional chest pain. PAST MEDICAL HISTORY: CAD, proximal LAD dissection, fibromyalgia, hypothyroidism, GERD, depression, anxiety, diabetes, hyperlipidemia. DISCHARGE MEDICATION REGIMEN: 1. Metformin 500 mg by mouth 2 times daily. 2. Alprazolam 0.25 mg to 0.5 mg by mouth every 6 hours as needed for anxiety. 3. Xanax 0.5 mg by mouth 2 times daily. 4. Acetaminophen 1000 mg by mouth 2 times daily as needed for pain. 5. Tizanidine 4 mg by mouth 3 times daily as needed for pain. 6. Glucosamine/chondroitin 1 tablet by mouth daily. 7. Fish oil 1500 mg by mouth daily. 8. Benadryl 25 mg by mouth at bedtime. 9. Vitamin D 400 units by mouth daily. 10. Multivitamin 1 tablet by mouth daily. 11. Calcium carbonate and vitamin D one tablet by mouth daily. 12. Aspirin 81 mg by mouth daily. 13. Vitamin C 500 mg by mouth daily. 14. Omeprazole 20 mg by mouth daily. 15. Synthroid 175 mcg by mouth daily. 16. Amitriptyline 100 mg by mouth at bedtime. 17. Sertraline 50 mg by mouth daily. 18. Loratadine 10 mg by mouth daily. 19. Lorcet Plus 1 tablet by mouth 3 times daily as needed for pain. 20. Ibuprofen 800 mg by mouth 2 times daily as needed for pain. 21. Nitroglycerin 0.4 mg sublingual every 5 minutes as needed for pain. STUDIES DONE DURING HOSPITALIZATION: Chest x-ray, impression: No active cardiopulmonary disease is noted. HISTORY OF PRESENT ILLNESS AND HOSPITAL SUMMARY: Please see the full history and physical done by me for full details. Briefly, Ms. Padilla is a 61-year- old female with past medical history as above, who presented to the hospital with exertional chest pressure. She is in the process of a cardiac workup prior to having a hernia surgery. She went to Dr. Reddy's office to undergo an echocardiogram and mentioned the symptoms to him. She was sent to the emergency room for further workup. EKG did not show any acute ischemic changes. The patient was monitored on telemetry. She was noted to have mildly elevated troponin of 0.04, which remained stable on three subsequent draws. Following day, the patient was asymptomatic. The initial plan was to try to get a stress test done; unfortunately, due to being the November, there were no cardiac technicians train controller in order to carry out the procedure. Dr. Reddy saw the patient in the hospital and ambulated her around the unit with no symptoms. The decision was made to discharge the patient home and she will undergo stress test as was initially scheduled on 11/23/16, in just a few days. She will follow up with Dr. Reddy and her PCP, Dr. Marte, as an outpatient. TIME SPENT: Total time spent on this discharge 45 minutes. This is a summary of the hospitalization, please see the full medical record for further details. [id number]/[facility] #: [id number] MTDD
== END 2016-11-20 14:12 | disposition home or self-care (01) ==
LOC: ED 16:15 → MEDTELE 17:44
PROVIDERS: ADMIT Hospitalist; ATTEND Hospitalist
DX: R07.89 Other chest pain (principal); I25.10 Atherosclerotic heart disease of native coronary artery without angina pectoris; E03.9 Hypothyroidism, unspecified; K21.9 Gastro-esophageal reflux disease without esophagitis; E11.9 Type 2 diabetes mellitus without complications; Z79.84 Long term (current) use of oral hypoglycemic drugs; E78.5 Hyperlipidemia, unspecified; M79.7 Fibromyalgia; R74.8 Abnormal levels of other serum enzymes; I44.7 Left bundle-branch block, unspecified; Z79.899 Other long term (current) drug therapy; Z88.5 Allergy status to narcotic agent; Z88.8 Allergy status to other drugs, medicaments and biological substances; Z95.1 Presence of aortocoronary bypass graft; Z87.891 Personal history of nicotine dependence
CPT/HCPCS: 36415; 71010; 80053; 80061; 83605; 83690; 84484; 85025; 85610; 93005; 96372; 96374; 99284; A9270-GY; G0378; J1650; J1885

== ENCOUNTER 2016-12-20 14:00 | Day surgery (SDC) | payer MEDICARE ==
--- NOTE | 2016-12-05 16:18 | HP ---
CC: Eleni Grace NP, [place], [place]; Dr. Garth Reddy, Cardiology * ADMISSION HISTORY AND PHYSICAL: DATE OF ADMISSION: 12/20/16 - [facility] ATTENDING SURGEON: Dr. Edis Noel* (DICTATED BY REGULO MICHAUD) CHIEF COMPLAINT: Abdominal wall hernia. HISTORY OF PRESENT ILLNESS: This is a 61-year-old female who is status post multiple abdominal surgeries including a laparoscopic-assisted hysterectomy many years ago. She subsequently developed a hernia from one of the laparoscopic port sites and underwent an open repair of the same soon after the hysterectomy. She has a right lower quadrant scar from that. Over the past 2 to 3 years, she has lost significant amount of weight and has noticed a bulge in the right lower quadrant. This is mildly uncomfortable mostly with direct pressure. She denies any GI symptoms. She does find that when she is relaxed, she can manually reduce the hernia, but it is otherwise out pretty much all the time when she is up and active. She was seen in the office by Dr. Noel on . A CT scan of the abdomen and pelvis was obtained for further definition of the anatomy. That scan from 10/26/16 did show some fatty liver changes as well as degenerative disk disease changes, which were stable. There was a very small fat-containing umbilical hernia (which has been asymptomatic). Finally, there was a fat- containing hernia at the edge of the rectus abdominis in the right lower quadrant with a defect measured at around 1.6 cm. The patient was also referred for cardiology evaluation (see below ). Dr. Noel has discussed with her the indications for surgery, the risks, benefits, and alternatives, and she understands the expected perioperative course. She would like to proceed as scheduled with laparoscopic repair, ventral hernia with mesh. PAST MEDICAL HISTORY: Coronary artery disease, status post RESIDENT INTERN with stenting followed by CABG in 2006 because of stent failure. She was admitted to [facility] from 11/19/16 to 11/20/16 because of chest pain, but was ruled out for ACS or MD. At that time, she was in the midst of her cardiology evaluation which has since been completed (see separate attached note from Dr. Reddy and also his directives regarding the initiation of perioperative beta blockade as well as checking postoperative troponins). She has chronic pain related in part to fibromyalgia and in part to her degenerative disk disease, which involves primarily the lumbar spine. She is a type 2 diabetic. She is treated for GERD , hypothyroidism, anxiety, and depression. She has a history of hyperlipidemia (but does not tolerate statins). She is obese and has a history of migraine headaches. PAST SURGICAL HISTORY: Includes CABG, 2006; laparoscopic cholecystectomy; oophorectomy for benign disease; tubal ligation; laparoscopic-assisted hysterectomy for premalignant disease, subsequent ventral hernia repair following the hysterectomy; tonsillectomy and adenoidectomy remotely. She did have some complications related to her hysterectomy including bleeding requiring a 10-day hospital stay. She also states that the spinal used for her ventral hernia repair "didn't take" and that she felt everything. No other reported surgical or anesthesia complications from her other procedures. CURRENT MEDICATIONS: 1. Metoprolol 25 mg once daily (just initiated). 2. Aspirin 81 mg once daily (she will continue perioperatively). 3. Levothyroxine 175 mcg once daily. 4. Metformin 500 mg b.i.d. 5. Zoloft 50 mg q. day. 6. Loratadine 10 mg q. day. 7. Motrin 800 mg (200 mg tablet x4) at h.s. 8. Prilosec OTC 20 mg q. day. 9. Benadryl 25 mg 3 tablets at h.s. (attempting to titrate down to 2 tablets). 10. Medical marijuana, dose not specified, 1 capsule twice daily. 11. Alprazolam 0.5 mg at h.s. and b.i.d. p.r.n. 12. Vitamin D 1000 units q. day. 13. Fish oil 1500 mg q. day. 14. Hydrocodone-acetaminophen 7.5-325 one tablet t.i.d. p.r.n. (does not use most days). 15. Tizanidine 4 mg t.i.d. p.r.n. (does not use most days). 16. Nitrostat 0.4 mg sublingual q.5 minutes up to 3 doses as needed (uses rarely). 17. Vitamin C 500 mg once daily. 18. Multivitamin once daily. 19. Calcium with D 600-400 once daily. 20. Glucosamine chondroitin once daily. 21. Extra-Strength Tylenol 500 mg 2 tablets t.i.d. p.r.n. 22. Colace 100 mg b.i.d. ALLERGIES: MOST NARCOTICS cause hallucinations, though she does tolerate hydrocodone. Specifically MORPHINE (difficulty breathing); CODEINE, GI side effects; DARVON, she does not recall; DEMEROL, itching; FENTANYL, hallucinations ; TALWIN, she does not recall; IMITREX (feeling of doom); ERYTHROMYCIN, GI side effects; STATINS (elevated liver function tests); CYMBALTA (increased depression ). FAMILY HISTORY: Negative for anesthesia problems (her mother did take a while to come out of general anesthesia), bleeding or clotting disorder. SOCIAL HISTORY: The patient is . She is an RN, but currently on disability. She is a former smoker, quit in 2006 with a prior [id number] history. She denies use of alcohol or recreational drugs, though does use medical marijuana for pain control. REVIEW OF SYSTEMS: No recent constitutional symptoms or acute illnesses other than described above. Her weight of late has been stable. Skin and Integument : She has a lesion in the left upper back which she states has been present for many years growing gradually; it has been noted by her PCP and measured ( see below for exam; she will follow up on this with her PCP). HEENT: She has a partial upper denture and a couple of bridges. No recent additional problems. Cardiovascular: As noted above, see recent discharge summary from 09/[address] Reddy's notes. Respiratory: No history of asthma, chronic cough , or shortness of breath. GI: She is treated for GERD. I did not ask her about most recent colonoscopy. No other problems reported. : No problems reported. Endocrine: She does not do fingersticks for her diabetes. She states that her last A1c was 6.0. She is treated for hypothyroidism. STOPPING BUILDER: She has an annual breast exam. She does not tolerate mammograms because of discomfort. She is unable to have breast MRI because of her previous surgeries. She will discuss screening ultrasound with her PCP. She is status post hysterectomy. PHYSICAL EXAMINATION GENERAL: Well-nourished, obese female in no acute distress. VITAL SIGNS: Height 5 feet 7 inches, weight 232 pounds, BMI 35.8, blood pressure 122/80, pulse 78, respirations 18. HEENT: Pupils are equal, round, and reactive. EOMs intact. No conjunctival pallor. Oropharynx: She has a partial upper denture. Remaining teeth in good repair. No intraoral lesions. NECK: No lymphadenopathy, thyromegaly, or masses. LUNGS: Clear to auscultation. No rales or wheezes. HEART: Regular rate and rhythm. No murmur appreciated. She has a well-healed median sternotomy incision. BREASTS: Not examined. ABDOMEN: Multiple well-healed surgical scars including a substantial right lower quadrant scar adjacent to which there is a soft tissue mass which is incompletely reducible on my exam today, is mildly tender to deep palpation. The remainder of the abdomen is soft, nontender, and without palpable masses or organomegaly. BACK: Subcutaneous skin lesion as noted above in the left upper back. No CVA tenderness. EXTREMITIES: No edema. GENITALIA AND RECTAL: Not done. NEUROLOGIC: Grossly intact. SKIN: Warm and dry. No suspicious rashes or lesions. There is a soft, nontender, palpable subcutaneous lesion in the left upper back, felt to be consistent with lipoma that measures approximately 7 cm in diameter. IMPRESSION: Ventral hernia. PLAN: Laparoscopic repair, ventral hernia with mesh. (Dr. Reddy requested check of postoperative troponin level). REGULO MICHAUD [id number]/[facility] #: [id number]
[~2016-12-20 14:00] MED LIST: Buffered Lidocaine 0.9% SYRIN* 5 ML/SYR SYRINGE INTRADERM ONE; Famotidine IV* 10 MG/ML 2 ML (20 mg) IV ONE
[2016-12-20] MEDS ORDERED: Famotidine IV* 10 MG/ML 2 ML (20 mg) ONE (14:09)
[2016-12-20] MEDS ORDERED: Buffered Lidocaine 0.9% SYRIN* 5 ML/SYR SYRINGE ONE (14:09)
[2016-12-20] MEDS ORDERED: ceFAZolin 2 GM PREMIX(*) 2 GM/50 ML BAG IVPB ONE (14:12)
[2016-12-20] MEDS ORDERED: Bupivacaine 0.5% W/EPI SDV* 10 ML VIAL INJ ONE (14:24)
[2016-12-20] MEDS ORDERED: fentaNYL* 50 MCG/ML 2 ML VIAL (100 MCG VIAL) ONE (14:25)
[2016-12-20] MEDS ORDERED: Dexamethasone IV* 4 MG/ML 1 ML (4 MG) ONE (14:25)
[2016-12-20] MEDS ORDERED: Propofol* 10 MG/ML 20 ML BTL IV PUSH ONE ×2 (14:25→15:28)
[2016-12-20] MEDS ORDERED: Ketorolac INJ* 30 MG/ML 1 ML VIAL ONE (14:25)
[2016-12-20] MEDS ORDERED: Ondansetron INJ* 2 MG/ML VIAL ONE (14:25)
[2016-12-20] MEDS ORDERED: Midazolam* 1 MG/ML 5 ML VIAL (5 MG) ONE (14:26)
[2016-12-20] MEDS ORDERED: Rocuronium* 10 MG/ML VIAL ONE (14:26)
[2016-12-20] MEDS ORDERED: KETAMINE HCL* 50 MG/ML 10 ML VIAL ONE (14:26)
[2016-12-20] MEDS ORDERED: HYDROmorphone* 1 MG/ML 1 ML SYR ONE ×3 (14:49→16:44)
[2016-12-20] MEDS ORDERED: EPHEDrine (Pressors)* 50 MG/ML VIAL ONE (14:49)
[2016-12-20] MEDS ORDERED: Phenylephrine INJ* 10 MG/ML 1 ML VIAL (10 MG) ONE (14:49)
[2016-12-20] MEDS ORDERED: Midazolam* 1 MG/ML 2 ML VIAL (2 MG) ONE (14:50)
[2016-12-20] MEDS ORDERED: HYDROcodone/ACETAMIN 5-325 MG* 1 TAB PO PRN (16:31)
[2016-12-20] MEDS ORDERED: Ondansetron INJ* 2 MG/ML VIAL IV PRN (16:44)
[2016-12-20] MEDS ORDERED: Acetaminophen IV 1GM/100ML * 100 ML IVPB ONE (16:44)
[2016-12-20] MEDS ORDERED: Acetaminophen IV 1GM/100ML * 100 ML ONE (16:44)
[2016-12-20] MEDS: HYDROmorphone* 1 MG/ML 1 ML SYR IV PRN ×2 (16:47→17:04)
[2016-12-20 18:41] VITALS: BP 100/57
[2016-12-20] MEDS ORDERED: HYDROcodone/ACETAMIN 5-325 MG* 1 TAB ONE ×2 (18:50)
--- NOTE | 2016-12-21 12:04 | OP ---
CC: Dr. Edis Noel; Dr. Garth Reddy; Eleni Grace NP OPERATIVE REPORT: DATE OF OPERATION: 12/20/16 DATE OF : 59 SURGEON: Edis Noel MD [employer] REPRESENTATIVE: Bhavna. ANESTHESIOLOGIST: Dr. Hernandez. ANESTHESIA: Local infiltration by the surgeon. PRE-OP DIAGNOSIS: Incisional ventral hernia in right lower quadrant. POST-OP DIAGNOSIS: Incisional ventral hernia in right lower quadrant. OPERATIVE PROCEDURE: Laparoscopic repair of incisional ventral hernia. DESCRIPTION OF PROCEDURE: The patient was supine on the operating table. After adequate general anesthetic, compression stockings, Car Hugger warmer, and intravenous antibiotics, the abdomen was prepped with antiseptic, draped in a sterile fashion. Local infiltrative anesthesia was carried out and a previous infraumbilical incision was reentered. The fascia was entered under direct vision and digital sweep revealed free peritoneal space in that region. Additional cannulae 5 mm, left lower quadrant and supraumbilical were placed through small stab wounds under direct vision. There was a right lower quadrant ventral hernia with omental contents. The quantity of omentum appeared to be approximately the size of tennis ball, although the defect was only about 2 cm, but it was able to be reduced bit by bit until all the omentum was reduced. Hemostasis was confirmed. The peritoneum was peeled back a little bit in that area, so that mesh would be able to stick to muscle, rather than the peritoneum. The 11.5 cm circular patch was put into place centered on the defect. The balloon was blown up to keep it spread out and flush with the abdominal wall and then the permanent spiral tacker was utilized to attach the patch up to the abdominal wall. About 25 tacks were utilized in two concentric circles. This created excellent coverage. Everything was in excellent condition. Hemostasis was good. The bowel had been kept well out of harm's way. The cannula removed. Umbilical fascia was closed with a 0 Polysorb, skin with 5-0 Polysorb in all case. This was followed by Steri-Strips. She tolerated the procedure well, was awakened then brought to recovery in good condition. There were no complications, no drains, no pathologic specimens. Sponge and instrument counts were correct. Estimated blood loss is 10 mL. [id number]/[facility] #: [id number] [facility]
== END 2016-12-20 19:10 | disposition home or self-care (01) ==
LOC: OR 14:00
PROVIDERS: ATTEND Surgery
DX: K43.2 Incisional hernia without obstruction or gangrene (principal); E11.8 Type 2 diabetes mellitus with unspecified complications; Z90.710 Acquired absence of both cervix and uterus; Z90.49 Acquired absence of other specified parts of digestive tract; Z79.84 Long term (current) use of oral hypoglycemic drugs; Z95.1 Presence of aortocoronary bypass graft; Z87.891 Personal history of nicotine dependence
CPT/HCPCS: C1781; J0690; J1100; J1170; J1885; J2250; J2405; J2704; J3010

== ENCOUNTER 2017-09-21 14:51 | Inpatient (IN) | payer MEDICARE ==
[2017-09-21] MEDS: Nitroglycerin TAB 0.4 MG* 0.4 MG TAB SL ONE ×2 (15:18→15:44)
--- NOTE | 2017-09-21 15:37 | RAD ---
INDICATION: Chest pain. COMPARISON: Comparison is made with a prior study from November 19, 2016. TECHNIQUE: A portable view of the chest was obtained. FINDINGS: The patient appears to be status post coronary artery bypass surgery. The heart is within normal limits in size. The lungs are clear. No pleural effusion is seen. IMPRESSION: POSTSURGICAL CHANGES, NO EVIDENCE FOR ACUTE FINDING.
[2017-09-21 16:06] LABS: ABS Basophils 0 10^3/ul (0-0.2); ABS Eosinophils 0.1 10^3/ul (0-0.6); ABS Lymphocytes 1.5 10^3/ul (1.0-4.8); ABS Monocytes 0.6 10^3/ul (0-0.8); ABS Neutrophils 5.8 10^3/ul (1.5-7.7); ABS Nucleated RBC 0 10^3/ul; Eosinophil % 0.7 % (0-6); Hematocrit 41 % (35-47); Hemoglobin 14.2 g/dl (12.0-16.0); Lymphocyte % 18.9 % (25-47); Mean Corpuscular HGB Conc 35 g/dl (31-36); Mean Corpuscular Hemoglobin 32 pg (27-31); Mean Corpuscular Volume 92 fL (80-97); Mean Platelet Volume 7.6 um3 (7.4-10.4); Nucleated Red Blood Cells % 0; Platelet Count 212 10^3/ul (150-450); Red Blood Count 4.44 10^6/ul (4.0-5.4); Red Cell Distribution Width 14 % (10.5-15)
[2017-09-21 16:15] LABS: INR 0.92 (0.77-1.02)
[2017-09-21] MEDS ORDERED: Nitroglycerin TAB 0.4 MG* 0.4 MG TAB SL ONE (17:22)
[2017-09-21] MEDS ORDERED: Ibuprofen TAB* 200 MG PO PRN (17:23)
[2017-09-21] MEDS ORDERED: tiZANidine TAB* 2 MG PO PRN (17:23)
[2017-09-21] MEDS ORDERED: Dextrose 50% Syringe 50 ML* 25 GM/50 ML SYRINGE IV PUSH PRN (17:26)
[2017-09-21] MEDS ORDERED: Al Hydrox/Mg Hydrox/Simet LIQ* 30 ML UDC PO PRN (17:35)
[2017-09-21] MEDS: HYDROcodone/ACETAMIN 5-325 MG* 1 TAB PO PRN (20:36)
[2017-09-21] MEDS ORDERED: metFORMIN* 500 MG TAB PO SCH (21:00)
[2017-09-21] MEDS: diPHENhydraMINE PO* 50 MG PO SCH (21:43)
[2017-09-21] MEDS: Docusate CAP* 100 MG PO SCH (21:43)
[2017-09-21] MEDS: QUEtiapine TAB* 25 MG PO SCH (21:43)
[2017-09-21] MEDS: ALPRAZolam TAB* 0.25 MG PO PRN (21:46)
--- NOTE | 2017-09-21 21:55 | HP ---
CC: Eleni Grace NP * [facility] MEDICINE HISTORY AND PHYSICAL: DATE OF ADMISSION: 09/21/17 PRIMARY CARE PROVIDER: Eleni Grace NP ATTENDING PHYSICIAN: Angela Bustamante MD * (dictation provided by Linn Lindsey NP) CHIEF COMPLAINT: Chest pain. HISTORY OF PRESENT ILLNESS: Ms. Padilla is a 62-year-old female with a past medical history of coronary artery disease with CABG in 2006 after failed stent placement for LAD rupture as well as diabetes, hypothyroidism, and chronic pain from fibromyalgia who presents to the hospital today with concern for chest pain. Ms. Padilla states that she has been fairly sedentary over the winter months. Over the past week or so, she started walking more. Today, she was doing some strenuous yard work including lifting heavy branches and walking up the hill. About 1:10 p.m., she had the sudden onset of severe left-sided chest discomfort. She reports that this radiated into her jaw and into her left arm. She had nausea and sweating. She vomited x1. Ultimately, the pain settled in to her back in between her shoulder blades. She took a couple of nitroglycerin and when this did not relieve her symptoms, she called EMS and was brought to the hospital for evaluation. She states that the nitroglycerin began to work after several tabs ultimately on the way here with EMS. It did return briefly but after receiving additional nitroglycerin in the ED, she is now chest pain free. She states that prior to this, she was feeling her normal state of health. She has had no complaints. Her last stress test and echocardiogram were in November 2016 after an episode of chest pain; that workup was negative and the patient was able to actually go on for an inguinal hernia repair with Dr. Noel, which she tolerated well. In the emergency room, Ms. Padilla had labs, which showed a troponin of 0.04. The remainder of her workup was negative. She had an EKG, which is nondiagnostic as it had a left bundle-branch block. Surprisingly, Ms. Padilla went to the bathroom today to have a bowel movement while here in the emergency room and had bright red blood per rectum. The patient states she never having a history of GI bleeding before. She does note a history of hemorrhoids, but has never noted them to bleed. She feels completely asymptomatic. She denies lightheadedness or dizziness. She has no abdominal pain or nausea. PAST MEDICAL HISTORY: 1. History of coronary artery disease with CABG after failed stent placement to an LAD rupture. 2. Fibromyalgia with chronic pain syndrome. 3. Hypothyroidism. 4. Type 2 diabetes, non-insulin dependent. 5. Hypertension. 6. Cardiac catheterization in 2012. No significant coronary artery disease. PAST SURGICAL HISTORY: 1. History of laparoscopic cholecystectomy. 2. Oophorectomy for benign disease. 3. Tubal ligation. 4. Laparoscopic assisted hysterectomy for premalignant disease. 5. Subsequent ventral hernia repair. 6. Inguinal hernia repair in 2017. 7. Tonsillectomy and adenoidectomy. MEDICATIONS: 1. Levothyroxine 150 mcg p.o. daily. 2. Bupropion XL 150 mg p.o. daily. 3. Quetiapine 25 mg p.o. at bedtime. 4. Hydrocodone/acetaminophen 7.5/325 one tab p.o. t.i.d. p.r.n. 5. Tizanidine 4 mg p.o. t.i.d. p.r.n. 6. Metformin 500 mg p.o. b.i.d. 7. Diphenhydramine 50 mg p.o. at bedtime. 8. Sertraline 50 mg p.o. q.a.m. 9. Omeprazole 20 mg p.o. q.a.m. 10. Hanna-3 fatty acid 1500 mg p.o. q.a.m. 11. Nitroglycerin 0.4 mg sublingual q.5 minutes p.r.n. 12. Multivitamin with mineral 1 tab p.o. q.a.m. 13. Medical marijuana capsule, 1 cap p.o. b.i.d. 14. Loratadine 10 mg p.o. q.a.m. 15. Ibuprofen 800 mg p.o. b.i.d. p.r.n. 16. Docusate 100 mg p.o. b.i.d. 17. Calcium 600, Vitamin D3 200 one tab p.o. daily. 18. Aspirin 81 mg p.o. q.a.m. 19. Ascorbic acid 500 mg p.o. q.a.m. 20. Alprazolam 0.25 to 0.5 mg p.o. q.6 hours p.r.n. ALLERGIES: MORPHINE, BLUE DYE, CODEINE, DULOXETINE, NALOXONE, PENTAZOCINE, PROPOXYPHENE, ERYTHROMYCIN, FENTANYL, MEPERIDINE, STATINS, SUMATRIPTAN. FAMILY HISTORY: Father due to [place] at age 79. Mother at age 89 related to pancreatic cancer. SOCIAL HISTORY: No report of alcohol, tobacco, or drug use. The patient was a former smoker but quit in 2006. She states her is her healthcare proxy. REVIEW OF SYSTEMS: A 14-point review of systems was completed with Ms. Padilla and all those not mentioned above were negative. PHYSICAL EXAMINATION GENERAL: Ms. Padilla is lying in the bed with the family at bedside. She is in no acute distress. VITAL SIGNS: Temperature 97.7, pulse rate 72, respiratory rate 14, O2 saturation 97% on room air, and blood pressure 130/80. LUNGS: Clear to auscultation bilaterally with no accessory muscle use and good aeration. HEART: S1, S2. No murmur, rub, or gallop and regular. ABDOMEN: Soft, nontender with bowel sounds positive x4. EXTREMITIES: No cyanosis or edema. NEURO: She is alert. She is oriented x3. She moves all extremities equally. There is no facial asymmetry or focal weakness. Extraocular movements are intact. SKIN: Intact. LABORATORY DATA/DIAGNOSTIC STUDIES: WBC 8.0, hemoglobin 14.2, hematocrit 41, platelet count 212. INR 0.92. Sodium 137, potassium 4.2, chloride 105, serum bicarbonate 22, BUN 23, creatinine 0.95, glucose 104. Troponin 0.04. EKG showed sinus rhythm with a heart rate of about 70 and a left bundle-branch block. Chest x-ray shows no acute intrathoracic process. ASSESSMENT AND PLAN: Ms. Padilla is a 62-year-old female with a past medical history of coronary artery disease with CABG after a failed stent placement and LAD rupture in 2006 as well as diabetes and chronic pain who presents to the hospital with concern for chest pain with activity. Our plans are for observation in the hospital for the followin. Chest pain: The patient is certainly at a high risk for acute coronary syndrome. She will be observed in the hospital overnight. Her first troponin is negative. Plan is to complete 2 additional troponins. We will not check another EKG as her left bundle-branch block makes any evaluation of this inconclusive. In reviewing the record, the patient has very similar presentation in November 2016 at which time she had a completely negative workup. I have spoken with Dr. Reddy and at this point he states that the patient should have serial troponins, but if those are negative, she can be discharged to follow up outpatient for further stress testing as needed. This can be reviewed again with him in the morning. Further management will be based on clinical course. Dr. Reddy suspects this seems to be a chronic intermittent left-sided discomfort for the patient who he follows outpatient. He suspects it is perhaps gastrointestinal or musculoskeletal and recommends that we provide antacids. It could also be a spasm and he has recommended calcium channel blockers. However, the patient is reluctant to start any new medication as she is generally very sensitive to all medications and did not tolerate beta blockers in the past. 2. Concern for GI bleed. Patient reported a one time episode of blood per rectum in the emergency room today. Patient has never had similar symptoms but does have a history of hemorrhoids. Plan to monitor her H/H and vital signs closely. This will make initiation of nticoagulation and anti-platelets more complicated. Dr. Reddy aware. 3. Type 2 diabetes. Hold metformin and provide blood glucose with q.a.c. with lispro sliding scale. 4. Fibromyalgia. Continue hydrocodone p.r.n. 5. Anxiety. Continue alprazolam p.r.n. 6. DVT prophylaxis with heparin subcu. 7. Hypothyroidism. We will continue levothyroxine. 8. Code status is full code. TIME SPENT: Approximately 60 minutes were spent on the admission of this patient, more than half the time spent with the patient at the bedside reviewing the events leading up to this hospitalization, performing the physical examination, and reviewing the plan of care. LINN LINDSEY NP [id number]/[facility] #: [id number] [place]
[2017-09-21] MEDS ORDERED: Heparin VIAL(*) 5000 UNITS/ML VIAL (FIVE THOUSAND) SUBCUT SCH (22:00)
--- NOTE | 2017-09-21 23:52 | ED ---
Deandre Gusman Tecjoon, scribed for Briana Schaeffer MD on 09/21/17 at 1514 . HPI Chest Pain - HPI Summary HPI Summary: This patient is a 62 year old female BIBA to [facility] accompanied by family with a chief complaint of substernal chest pain since approx. 1310. Patient states she was outside, doing some heavy lifting/gardening when she felt a sudden tightness pain in her left chest. The pain radiates up to her neck. The pain is rated 9/10 in severity. Symptoms aggravated by nothing. Symptoms alleviated by NTG. Patient states that she hasnt felt pain like this since her last MT in 2006. Patient has a hx of angina attacks, but the pain has never been this bad. Patient attempted to treat the sx with 3 NTG and 4 baby aspirin with no relief. Patient does not know the age of her NTG. EMS administered 1 NTG with no relief , and then EMS gave a second NTG which alleviated sx briefly, bringing her pain level to zero. Pt's chest pain recurred The last systolic BP by EMS prior to admission to ED was 148. An EKG done by EMS notes SR, LBBB. Patient additionally reports weakness, diaphoresis, nausea. Pt states that she has prescribed CBD oil and that it is in her system. - History of Current Complaint Hx Obtained From: Patient, EMS Onset/Duration: Started Hours Ago, Still Present Time of Onset: 13:10 Timing: Constant Initial Severity: Severe Current Severity: Severe Pain Intensity: 9 Pain Scale Used: 0-10 Numeric Chest Pain Location: Left Anterior Chest Pain Radiates: Yes Chest Pain Radiates To:: Neck Character: Pressure/Squeezing Aggravating Factor(s): Nothing Alleviating Factor(s): NTG 123 - fifth NTG relieved her pain completely, then it recurred upon adm to ED, EMS Tx Associated Signs and Symptoms: Positive: Chest Pain, Diaphoresis, Nausea, Other : - weakness, diaphoresis, nausea Related History: Similar Episode/Dx as: - MT in 2006 - Risk Factors AMI/ACS Risk Factors: Myocardial Infarction - Allergy/Home Medications Allergies/Adverse Reactions: Allergies Allergy/AdvReac Type Severity Reaction Status Date / Time blue dye Allergy SEVERE Verified 09/21/17 19:43 DEPRESSION codeine Allergy Rash Verified 09/21/17 20:43 duloxetine Allergy See Comment Verified 09/21/17 20:43 grass pollen Allergy Congestion Verified 09/21/17 22:32 meperidine Allergy Itching Verified 09/21/17 22:32 morphine Allergy See Comment Verified 09/21/17 20:40 naloxone [From Talwin NX] Allergy Rash Verified 09/21/17 22:32 pentazocine [From Talwin NX] Allergy Rash Verified 09/21/17 22:32 propoxyphene [From Darvon] Allergy Rash Verified 09/21/17 22:32 sumatriptan [From Imitrex] AdvReac Severe Anxiety Verified 09/21/17 22:32 erythromycin base AdvReac GI Upset Verified 09/21/17 22:32 fentanyl AdvReac Hallucinati Verified 09/21/17 22:32 ons Vawncnz-Tbb-[id number] Reductase AdvReac See Comment Verified 09/21/17 22:32 Inhibitor Home Medications: Home Medications Bupropion XL* [Wellbutrin XL *] 150 mg PO DAILY 09/21/17 [History Confirmed 10/04] Hydrocodone/Acetaminophen [Hardesty 7.5-325 Tablet] 1 tab PO TID PRN 09/21/17 [ History Confirmed 09/21/17] Levothyroxine TAB* [Synthroid 150 MCG TAB*] 150 mcg PO DAILY 09/21/17 [History Confirmed 09/21/17] QUEtiapine TAB* [Seroquel 25 MG TAB*] 25 mg PO BEDTIME 09/21/17 [History Confirmed 09/21/17] tiZANidine TAB* [Zanaflex TAB*] 4 mg PO TID PRN 09/21/17 [History Confirmed 10/04] PMH/Surg Hx/FS Hx/Imm Hx Previously Healthy: No Endocrine/Hematology History: Reports: Hx Diabetes, Hx Thyroid Disease Cardiovascular History: Reports: Hx Angina, Hx Coronary Artery Disease, Hx Valvular Heart Disease, Other Cardiovascular Problems/Disorders - left bundle branch block Denies: Hx Hypertension, Hx Pacemaker/ICD GI History: Reports: Hx Gastroesophageal Reflux Disease, Hx Hiatal Hernia History: Denies: Hx Dialysis, Hx Renal Disease Musculoskeletal History: Reports: Hx Arthritis, Hx Back Problems - spina bifida , Hx Fibromyalgia, Other Musculoskeletal History - degenerative disc disease Sensory History: Reports: Hx Contacts or Glasses Denies: Hx Hearing Aid Opthamlomology History: Reports: Hx Contacts or Glasses Neurological History: Reports: Hx Migraine, Other Neuro Impairments/Disorders - congenital spina bifida Psychiatric History: Reports: Hx Anxiety, Hx Depression Denies: Hx Panic Disorder - Cancer History Cancer Type, Location and Year: cervical ca - Surgical History Surgery Procedure, Year, and Place: hx of heart cath 2011; 2 VESSEL CABG 2006- [facility](DR SANDOVAL CLEARED CLIPS IN CHEST WELL VERIFIED TEMPORARY PACING WIRE WAS REMOVED VIA CHEST XRAY IN 2013-OP REPORT SCANNED INTO PATIENTS RECORDS), CARDIAC CATH X2, BILATERAL CARPAL TUNNEL, CHOLECYSTECTOMY, T&A , D&C, HYSTERECTOMY, ABD HERNIA REPAIR X2-12/20/2016 Hx Anesthesia Reactions: Yes - pt states she gets hypotensive, bradycardiac Infectious Disease History: No Infectious Disease History: Denies: Traveled Outside the [place] in Last 30 Days - Family History Known Family History: Positive: Cardiac Disease - father, , Other - POS : pancreatic CA, mother - Social History Occupation: Disabled - ICU nurse Lives: With Family Alcohol Use: None Hx Substance Use: Yes Substance Use Type: Reports: Marijuana - medical, Prescribed Substance Use Comment - Amount & Last Used: hydrocodone Hx Tobacco Use: Yes Smoking Status (MU): Former Smoker Type: Cigarettes Amount Used/How Often: quit July 2006, smoked for approx 20 yrs 1ppd Review of Systems Positive: Skin Diaphoresis. Negative: Fever Positive: Chest Pain Respiratory: Negative Positive: Nausea Musculoskeletal: Negative Skin: Negative Positive: Weakness - generalized Psychological: Normal All Other Systems Reviewed And Are Negative: Yes Physical Exam - Summary Physical Exam Summary: Appearance: Not Ill-appearing, severe pain distress, Well-nourished Skin: Warm, color reflects adequate perfusion, diaphoretic Head: Normal Head/Face inspection Eyes: Conjunctiva clear ENT: Normal inspection Neck: Supple, no nodes, no JVD. Respiratory: Lungs clear, Normal breath sounds, no respiratory distress Cardio: RRR, No murmur, pulses normal, brisk capillary refill Abdomen: soft, nontender, no masses Bowel sounds: present Musculoskeletal: Strength Intact/ ROM intact. No calf tenderness. No edema. Psychological: Normal Neuro: Alert, muscle tone normal, no focal deficit Triage Information Reviewed: Yes Vital Signs On Initial Exam: Initial Vitals Temp Pulse Resp BP Pulse Ox 97.7 F 61 18 165/87 98 09/21/17 15:06 09/21/17 15:06 09/21/17 15:06 09/21/17 15:06 09/21/17 15:06 Vital Signs Reviewed: Yes Diagnostics - Vital Signs Vital Signs Temp Pulse Resp BP Pulse Ox 09/21/17 15:06 97.7 F 61 18 165/87 98 - Laboratory Lab Results: Lab Results 09/21/17 09/21/17 09/21/17 Range/Units 15:56 15:56 15:56 WBC 8.0 (3.5-10.8) 10^3/ul RBC 4.44 (4.0-5.4) 10^6/ul Hgb 14.2 (12.0-16.0) g/dl Hct 41 (35-47) % MCV 92 (80-97) fL MCH 32 H (27-31) pg MCHC 35 (31-36) g/dl RDW 14 (10.5-15) % Plt Count 212 (150-450) 10^3/ul MPV 7.6 (7.4-10.4) um3 Neut % (Auto) 72.9 (38-83) % Lymph % (Auto) 18.9 L (25-47) % Young % (Auto) 7.2 H (0-7) % Eos % (Auto) 0.7 (0-6) % Baso % (Auto) 0.3 (0-2) % Absolute Neuts (auto) 5.8 (1.5-7.7) 10^3/ul Absolute Lymphs (auto) 1.5 (1.0-4.8) 10^3/ul Absolute Monos (auto) 0.6 (0-0.8) 10^3/ul Absolute Eos (auto) 0.1 (0-0.6) 10^3/ul Absolute Basos (auto) 0 (0-0.2) 10^3/ul Absolute Nucleated RBC 0 10^3/ul Nucleated RBC % 0 INR (Anticoag Therapy) (0.77-1.02) APTT (26.0-36.3) seconds D-Dimer, Quantitative (Less Than 230) ng/mL Sodium 137 L (139-145) mmol/L Potassium 4.2 (3.5-5.0) mmol/L Chloride 105 (101-111) mmol/L Carbon Dioxide 22 (22-32) mmol/L Anion Gap 10 (2-11) mmol/L BUN 23 (6-24) mg/dL Creatinine 0.95 (0.51-0.95) mg/dL Est GFR ( Amer) 77.2 (>60) Est GFR (Non-Af Amer) 60.0 (>60) BUN/Creatinine Ratio 24.2 H (8-20) Glucose 104 H (70-100) mg/dL Lactic Acid 1.9 (0.5-2.0) mmol/L Calcium 9.1 (8.6-10.3) mg/dL Magnesium 1.9 (1.9-2.7) mg/dL Total Bilirubin 0.50 (0.2-1.0) mg/dL AST 14 (13-39) U/L ALT 14 (7-52) U/L Alkaline Phosphatase 46 (34-104) U/L Total Creatine Kinase 70 (10-223) U/L CK-MB (CK-2) 1.5 (0.6-6.3) ng/mL Troponin I 0.04 H* (<0.04) ng/mL B-Natriuretic Peptide ( - 100) pg/mL Total Protein 6.9 (6.4-8.9) g/dL Albumin 3.6 (3.2-5.2) g/dL Globulin 3.3 (2-4) g/dL Albumin/Globulin Ratio 1.1 (1-3) 09/21/17 09/21/17 09/21/17 Range/Units 15:56 15:56 17:19 WBC (3.5-10.8) 10^3/ul RBC (4.0-5.4) 10^6/ul Hgb (12.0-16.0) g/dl Hct (35-47) % MCV (80-97) fL MCH (27-31) pg MCHC (31-36) g/dl RDW (10.5-15) % Plt Count (150-450) 10^3/ul MPV (7.4-10.4) um3 Neut % (Auto) (38-83) % Lymph % (Auto) (25-47) % Young % (Auto) (0-7) % Eos % (Auto) (0-6) % Baso % (Auto) (0-2) % Absolute Neuts (auto) (1.5-7.7) 10^3/ul Absolute Lymphs (auto) (1.0-4.8) 10^3/ul Absolute Monos (auto) (0-0.8) 10^3/ul Absolute Eos (auto) (0-0.6) 10^3/ul Absolute Basos (auto) (0-0.2) 10^3/ul Absolute Nucleated RBC 10^3/ul Nucleated RBC % INR (Anticoag Therapy) 0.92 (0.77-1.02) APTT 29.2 (26.0-36.3) seconds D-Dimer, Quantitative < 200 (Less Than 230) ng/mL Sodium (139-145) mmol/L Potassium (3.5-5.0) mmol/L Chloride (101-111) mmol/L Carbon Dioxide (22-32) mmol/L Anion Gap (2-11) mmol/L BUN (6-24) mg/dL Creatinine (0.51-0.95) mg/dL Est GFR ( Amer) (>60) Est GFR (Non-Af Amer) (>60) BUN/Creatinine Ratio (8-20) Glucose (70-100) mg/dL Lactic Acid (0.5-2.0) mmol/L Calcium (8.6-10.3) mg/dL Magnesium (1.9-2.7) mg/dL Total Bilirubin (0.2-1.0) mg/dL AST (13-39) U/L ALT (7-52) U/L Alkaline Phosphatase (34-104) U/L Total Creatine Kinase (10-223) U/L CK-MB (CK-2) (0.6-6.3) ng/mL Troponin I 0.06 H* (<0.04) ng/mL B-Natriuretic Peptide 47 ( - 100) pg/mL Total Protein (6.4-8.9) g/dL Albumin (3.2-5.2) g/dL Globulin (2-4) g/dL Albumin/Globulin Ratio (1-3) Result Diagrams: 09/22/17 06:43 09/23/17 05:48 Lab Statement: Any lab studies that have been ordered have been reviewed, and results considered in the medical decision making process. - EKG 1506 Cardiac Rate: NL EKG Rhythm: Sinus Rhythm - [address] Segment: Non-Specific Ectopy: None EKG Interpretation: normal AVCT, LBBB, normal QTc, axis 39 EKG Comparison: No Significant Change - since 12/16/2016 EKG. Re-Evaluation - Re-Evaluation First Eval Re-Evaluation Time: 16:25 Change: Improved Comment: Patient states that her pain has improved greatly after NTG and is now a 0. Chest Pain Course/Dx - Course Course Of Treatment: This patient is a 62 year old female with hx MT and CABG BIBA to [facility] accompanied by family with a chief complaint of substernal chest pain since approx. 1310. An EKG taken by EMS notes LBBB (pre-existing). An EKG, taken 1506, reveals NSR (62 BPM), normal AVCT, LBBB, normal QTc, axis 39, no ectopy, non-specific. No change since 12/16/16 EKG. CXR reveals, per radiologist , IMPRESSION: POSTSURGICAL CHANGES, NO EVIDENCE FOR ACUTE FINDING. ED physician has reviewed this radiology report. Bloodwork Obtained. Urinalysis Obtained. At 1628, the patients troponin level is 0.04. In the ED course the patient was given NTG. We discussed patient care with Dr. Reddy (Pitch Worker) at 1520 regarding questionable STEMI in pt with LBBB, hx CAD and severe chest pain. He recommended waiting for cardiac enzymes, treating with nitrates and repeating the troponin in an hour. We discussed patient care with Dr. Reddy (Pitch Worker ) at 1633 and advises hospitalist admission and serial troponins. ARMAND Walsh, reports, at 1650, the patient had a bowel movement with bright red blood that looks like hemorrhoidal blood. We discussed patient care with Dr. Bustamante ( Hospitalist) at 1712 and she agreed to accept the patient. Patient will be admitted with a dx of chest pain, elevated troponin and LBBB.The patient is agreeable with this plan. - Chest Pain Differential Diagnosis/HQI/PQRI: Acute MT, ACS, Angina - Diagnoses Provider Diagnoses: Chest pain, Elevated troponin, LBBB (left bundle branch block), NSTEMI (non-ST elevated myocardial infarction) - Provider Notifications Discussed Care Of Patient With: Garth Reddy - Pitch Worker Time Discussed With Above Provider: 15:20 - We discussed patient care with Dr. Reddy (Pitch Worker) at 1520 regarding questionable STEMI with LBBB and he recommended waiting for enzymes, treating with nitrates and repeating the troponin in an hour. Instructed by Provider To: Admit As Inpatient - Also discussed with Dr. Reddy at 1633, then discussed patient care with Dr. Bustamante (Hospitalist) at 1712 and she agreed to admit the patient. - Critical Care Time Critical Care Time: 30-74 min - 30 minutes Discharge - Sign-Out/Discharge Documenting (check all that apply): Discharge/Admit/Transfer - Discharge Plan Condition: Stable Disposition: ADMITTED TO [facility] - Billing Disposition and Condition Condition: STABLE Disposition: [facility] [place] The documentation as recorded by the Deandre estrada Tecjoon accurately reflects the service I personally performed and the decisions made by Maksim hopkins Barbara J, MD.
[2017-09-22] MEDS: HYDROcodone/ACETAMIN 5-325 MG* 1 TAB PO PRN ×4 (00:29→21:07)
[2017-09-22] MEDS: Nitroglycerin TAB 0.4 MG* 0.4 MG TAB SL PRN ×2 (00:43→10:32)
[2017-09-22] MEDS: Heparin DRIP 25,000 UNITS(*) 25,000 UNITS/500 ML BAG IV SCH (03:23)
[2017-09-22] MEDS: Levothyroxine TAB* 150 MCG TAB PO SCH (05:17)
[2017-09-22 07:12] LABS: ABS Basophils 0 10^3/ul (0-0.2); ABS Eosinophils 0.1 10^3/ul (0-0.6); ABS Lymphocytes 2.6 10^3/ul (1.0-4.8); ABS Monocytes 0.5 10^3/ul (0-0.8); ABS Neutrophils 1.9 10^3/ul (1.5-7.7); ABS Nucleated RBC 0 10^3/ul; Eosinophil % 2.8 % (0-6); Hematocrit 40 % (35-47); Hemoglobin 13.6 g/dl (12.0-16.0); Lymphocyte % 50.7 % (25-47); Mean Corpuscular HGB Conc 34 g/dl (31-36); Mean Corpuscular Hemoglobin 32 pg (27-31); Mean Corpuscular Volume 94 fL (80-97); Mean Platelet Volume 7.5 um3 (7.4-10.4); Nucleated Red Blood Cells % 0.1; Platelet Count 198 10^3/ul (150-450); Red Blood Count 4.26 10^6/ul (4.0-5.4); Red Cell Distribution Width 14 % (10.5-15); White Blood Count 5.1 10^3/ul (3.5-10.8)
[2017-09-22] MEDS ORDERED: Omeprazole CAP* 20 MG PO SCH (07:30)
[2017-09-22 07:31] LABS: EGFR Non-African American 56.6 (>60)
[2017-09-22] MEDS: Insulin LISPRO* 1 UNITS UNIT SUBCUT SCH ×3 (07:55→16:38)
[2017-09-22] MEDS: Ascorbic Acid TAB* 500 MG PO SCH (08:17)
[2017-09-22] MEDS: Sertraline* 50 MG TAB PO SCH (08:18)
[2017-09-22] MEDS: Docusate CAP* 100 MG PO SCH ×2 (08:18→21:07)
[2017-09-22] MEDS: Aspirin 81 mg CHEW TAB* 81 MG TAB.CHEW PO SCH (08:18)
[2017-09-22] MEDS ORDERED: Nitroglycerin TAB 0.4 MG* 0.4 MG TAB SL PRN (08:32)
[2017-09-22] MEDS: BuPROPion XL* 150 MG TAB.XL PO SCH (09:56)
[2017-09-22] MEDS: Cetirizine* 10 MG TAB PO SCH (09:57)
[2017-09-22] MEDS ORDERED: Clopidogrel TAB* 300 MG PO ONE (10:01)
[2017-09-22] MEDS ORDERED: CMC:Pantoprazole TAB (NF) 40 MG TAB PO SCH (10:04)
--- NOTE | 2017-09-22 10:17 | CONSULT ---
Subjective Date of Service: 09/22/17 Interval History: Admission date 09/21/2017 Consult Date 09/22/2017 Service: Hospitalist PCP Eleni Grace NP CC: Chest pain Reason for consult: NSTEMI HPI Leigh Padilla is a 62 year old woman known to me with a history of revascularization as outlined below. I am uncertain if her initial stent placed was related to an iatrogenic dissection or not. She has had chronic intermittent chest pain relating to left arm and neck, last catheterization 2012 to evaluate this without culprit and stress MPI 11/2016 to evaluate this small anteroapical UT with no ischemia. She is statin and beta-juan intolerant. She has declined imdur in the past. 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 She takes medical marijuana to treat this but between this and her other medications readily admits it interferes with her thinking. Ms. Padilla has not been very active this winter. She has not had any recent chest pain except yesterday. She was lifting tree branches and developed left sided chest discomfort radiating into her left jaw and arm associated with nausea, sweating and vomiting then pain between shoulder blades. Her SL NTG did not relieve symptoms had more in EMS and then made pain free. She ruled in for ACS with serial troponins. An EKG showed a LBBB unchanged. She had persistent chest pressure today now resolved after addition of plavix, diltiazem and topical nitrates to her regimen. She is currently pain free. There was a report of bloody bowel movement in the ER. She has a history of hemorrhoids. She has had bowel movements since without any blood while on aspirin, plavix and heparin. Pmhx/Pshx: CAD s/p PCI and CABG 2006. CABG in 2006 with reportedly complicated ICU stay including bleeding requiring sternal reexploration and a lip ulcer from intubation, quit smoking at that time Chronic Pain Syndrome Diabetes Type II Hypertension Laparoscopy, Cholecystectomy, Tubal Ligation, Hysterectomy, Hernia Repair Allergies: Morphine 07/31/11 Codeine 07/31/11 Darvon 07/31/11 Demerol 07/31/11 Fentanyl 07/31/11 Lortab 07/31/11 Imitrex 07/31/11 Talwin Nx 07/31/11 Erythromycin 11/01/16 Statins 11/08/16 - multiple statins caused elevated LFT's Metoprolol, mood changes, bad dreams FH: Father: due to UT - (11/02/2016) age 79. Mother: Gastroesophageal Reflux Disease (GERD), hiatal hernia. due to Pancreatic Cancer - age 89. SH: Marital: . Prior Nurse. Former smoker, no excessive alcohol use, marijuana use to assist with ADL's. Medications Active Medications: Hydrocodone Bitart/Acetaminophen ([place] 5-325 Tab*) 2 tab PO Q4H PRN PRN Reason: PAIN Last Admin: 09/22/17 09:57 Dose: 2 tab Al Hydrox/Mg Hydrox/Simethicone (Maalox Plus*) 30 ml PO Q4H PRN PRN Reason: INDIGESTION Alprazolam (Xanax Tab*) 0.25 mg PO Q6H PRN PRN Reason: ANXIETY Last Admin: 09/21/17 21:46 Dose: 0.25 mg Ascorbic Acid (Vitamin C Tab*) 500 mg PO QAM [facility] Last Admin: 09/22/17 08:17 Dose: 500 mg Aspirin (Aspirin 81 Mg Chew Tab*) 81 mg PO QAM [facility] Last Admin: 09/22/17 08:18 Dose: 81 mg Bupropion HCl (Wellbutrin Xl *) 150 mg PO DAILY [facility] PRN Reason: Protocol Last Admin: 09/22/17 09:56 Dose: 150 mg Cetirizine HCl (Zyrtec*) 10 mg PO QAM [facility] Last Admin: 09/22/17 09:57 Dose: 10 mg Clopidogrel Bisulfate (Plavix Tab*) 75 mg PO DAILY [facility] Dextrose (D50w Syringe 50 Ml*) 12.5 gm IV PUSH .FOR FS < 60 - SS PRN PRN Reason: FS < 60 Diltiazem HCl (Cardizem Cd Cap*) 180 mg PO DAILY [facility] Diphenhydramine HCl (Benadryl Po*) 50 mg PO BEDTIME [facility] Last Admin: 09/21/17 21:43 Dose: 50 mg Docusate Sodium (Colace Cap*) 100 mg PO BID [facility] Last Admin: 09/22/17 08:18 Dose: 100 mg Ezetimibe (Zetia Tab*) 10 mg PO 1700 [facility] Heparin Sodium/Dextrose (Heparin Drip 25,000 Units(*)) 25,000 units in 500 mls @ 0 mls/hr IV PER RATE SERGIO; Per Protocol PRN Reason: Protocol Last Admin: 09/22/17 03:23 Dose: 19 mls/hr Ibuprofen (Advil Tab*) 800 mg PO BID PRN PRN Reason: FEVER/PAIN Insulin Human Lispro (Humalog*) 0 units SUBCUT AC [facility] PRN Reason: Protocol Last Admin: 09/22/17 07:55 Dose: Not Given Levothyroxine Sodium (Synthroid Tab*) 150 mcg PO DAILY@0600 [facility] Last Admin: 09/22/17 05:17 Dose: 150 mcg Nitroglycerin (Nitroglycerin Tab 0.4 Mg*) 0.4 mg SL Q5M PRN PRN Reason: ANGINA Last Admin: 09/22/17 00:43 Dose: 0.4 mg Pantoprazole Sodium (Protonix Tab (Nf)) 40 mg PO QAM@0730 [facility] Quetiapine Fumarate (Seroquel Tab*) 25 mg PO BEDTIME [facility] Last Admin: 09/21/17 21:43 Dose: 25 mg Sertraline HCl (Zoloft*) 50 mg PO QAM [facility] Last Admin: 09/22/17 08:18 Dose: 50 mg Tizanidine HCl (Zanaflex Tab*) 4 mg PO TID PRN PRN Reason: SPASMS - MUSCLE Nitro paste Home Medications: Ascorbic Acid TAB* [Vitamin C TAB*] 500 mg PO QA 10/15/12 [History Confirmed 09/21/17] Aspirin 81 mg CHEW TAB* 81 mg PO QA 10/15/12 [History Confirmed 09/21/17] Calcium Carbonate/Vitamin D3 [Calcium 600-Vit D3 200 Tablet] 1 tab PO DAILY [History Confirmed 09/21/17] Ibuprofen TAB* [Advil TAB*] 800 mg PO BID PRN 10/15/12 [History Confirmed ] Multivitamins/Minerals TAB* [Thera M Plus TAB*] 1 tab PO QAM 10/15/12 [History Confirmed 09/21/17] Omeprazole CAP* [Prilosec CAP* 20 MG] 20 mg PO QAM 10/15/12 [History Confirmed 09/21/17] Sertraline* [Zoloft*] 50 mg PO QAM 10/15/12 [History Confirmed 09/21/17] diPHENhydraMINE PO* [Benadryl PO 25 MG TAB*] 50 mg PO BEDTIME 10/15/12 [History Confirmed 09/21/17] ALPRAZolam TAB* [Xanax TAB*] 0.25 - 0.5 mg PO Q6H PRN MDD 2 mg 11/19/16 [ History Confirmed 09/21/17] LoraTADine TAB(NF) [Claritin 10 MG TAB(NF)] 10 mg PO QAM 11/19/16 [History Confirmed 09/21/17] Simpson-3 Fatty Acids (Nf) [Fish Oil (NF)] 1,500 mg PO QAM 11/19/16 [History Confirmed 09/21/17] metFORMIN* [Glucophage 500 MG TAB *] 500 mg PO BID 11/19/16 [History Confirmed 09/21/17] Nitroglycerin TAB 0.4 MG* 0.4 mg SL Q5M PRN #15 tab 11/20/16 [Rx Confirmed 09/21] Docusate CAP* [Colace Cap*] 100 mg PO BID 12/05/16 [History Confirmed 09/21/17] Medical Marijuana Capsule 1 cap PO BID 12/05/16 [History Confirmed 09/21/17] Bupropion XL* [Wellbutrin XL *] 150 mg PO DAILY 09/21/17 [History Confirmed 10/04] Hydrocodone/Acetaminophen [[place] 7.5-325 Tablet] 1 tab PO TID PRN 09/21/17 [ History Confirmed 09/21/17] Levothyroxine TAB* [Synthroid TAB*] 150 mcg PO DAILY 09/21/17 [History Confirmed 09/21/17] QUEtiapine TAB* [SEROquel TAB*] 25 mg PO BEDTIME 09/21/17 [History Confirmed 10/04] tiZANidine TAB* [Zanaflex TAB*] 4 mg PO TID PRN 09/21/17 [History Confirmed 10/04] Review of Systems - Measurements Intake and Output: Intake and Output Last 24 Hours 09/20/17 09/21/17 09/22/17 09/23/17 06:59 06:59 06:59 06:59 Intake Total 700 Output Total 0 Balance 700 Weight 224 lb 1.6 oz Intake: Oral 700 Output: Urine 0 Other: Estimated Void Large # Bowel Movements 0 # Voids 1 - Review of Systems Constitutional Symptoms: Negative: Weight Gain, Weight Loss, Weakness, Fatigue Dermatology: Negative: Rash, Skin Lesions HEENT: Negative: Change in Hearing, Vertigo Eyes: Negative: Change in Vision, Double Vision Thyroid: Negative: Weight Loss, Weight Gain, Change in Skin/Hair Pulmonary: Negative: Shortness of Breath, Asthma Cardiology: Positive: Chest Pain Negative: Shortness of Breath, Palpitations, Swelling of Ankles, Peripheral Vascular Dis, Edema, Faintness, Syncope, Claudication, Paroxysmal Nocturnal Dyspnea, Orthopnea Gastroenterology: Positive: Vomiting Negative: Anorexia Genital - Urinary: Negative: Dysuria, Hematuria Musculoskeletal: Negative: Joint Pain, Joint Stiffness Endocrinology: Positive: Obesity, Diabetes Hematologic/Lymphatic: Positive: Use of Antiplatelet Drugs Negative: Anemia, Use of Anticoagulant Neurology: Negative: Headaches, Change in Speech, Change in Sphincter Function Psychiatry: Positive: Anxiety Negative: Tearfulness, Unusual Fatigue, Hypomania Allergic/Immunologic: Negative: Hx HIV, Immunocompromise Review of Systems Statement: All other review of systems negative, unless stated above. Objective Vital Signs: Temp Pulse Resp BP Pulse Ox 97.4 F 58 17 103/66 95 09/22/17 07:30 09/22/17 07:30 09/22/17 09:57 09/22/17 07:30 09/22/17 07:30 Oxygen Devices in Use Now: None Appearance: nad, pleasant Ears/Nose/Mouth/Throat: Clear Oropharnyx, Mucous Membranes Moist Neck: NL Appearance and Movements; NL JVP Respiratory: Symmetrical Chest Expansion and Respiratory Effort, Clear to Auscultation Cardiovascular: NL Sounds; No Murmurs; No JVD, RRR, No Edema, - - sternotomy scar noted Abdominal: NL Sounds; No Tenderness; No Distention Extremities: No Edema Skin: No Rash or Ulcers Neurological: Alert and Oriented x 3 Laboratory Results: 09/22/17 06:43 09/22/17 06:43 INR (Anticoag Therapy) 0.92 (0.77-1.02) 09/21/17 15:56 APTT 70.6 seconds (26.0-36.3) H 09/22/17 08:07 Total Bilirubin 0.50 mg/dL (0.2-1.0) 09/21/17 15:56 AST 14 U/L (13-39) 09/21/17 15:56 ALT 14 U/L (7-52) 09/21/17 15:56 Alkaline Phosphatase 46 U/L (34-104) 09/21/17 15:56 CK-MB (CK-2) 1.5 ng/mL (0.6-6.3) 09/21/17 15:56 B-Natriuretic Peptide 47 pg/mL (-100) 09/21/17 15:56 Total Protein 6.9 g/dL (6.4-8.9) 09/21/17 15:56 Albumin 3.6 g/dL (3.2-5.2) 09/21/17 15:56 Globulin 3.3 g/dL (2-4) 09/21/17 15:56 Albumin/Globulin Ratio 1.1 (1-3) 09/21/17 15:56 09/21/17 09/22/17 09/22/17 19:08 00:20 03:15 Troponin I 0.19 H* 0.52 H* 0.48 H* 09/22/17 09/22/17 06:43 08:07 Troponin I 0.35 H* 0.31 H* labs 11/2016 tri 256, tchol 240, ldl 151, hdl 38 Diagnostic Imaging: Cardiac Testing: Echocardiogram - (11/19/2016) Normal LV size, mild LVH, LVEF 50-55%, LA mildly dilated, normal RV size and function, no significant valvular abnormalities noted. Stress Test - (11/23/2016) Abnormal Chemical nuclear stress test. Small sized anteroapical infarction. No ischemia. EF 52% rest, TID 0.73 Cardiac Procedures: Cardiac Catheterization - (08/03/2006) Indication chest pain, anterior wall ischemia on stress test: R femoral Dr. Brooks: IVUS guided pLAD stent to coronary dissection Cardiac Catheterization - (08/05/2006) Dr. Taty Meyer'familia indication chest pain. Residual proximal LAD dissection unable to intervene on Cardiac Catheterization - (07/23/2012) [facility]: indication chest pain and LBBB: Atretic KUHN graft, patent pLAD stent followed by 50-60% lesion, SVG-diagonal widely patent which fills LAD antegade and retrograde, no significant RCA or Lcx disease, LVEF 55% Multi-Vessel Coronary Artery Bypass Grafting - (08/05/2006) at [facility], Dr. Nj, off-pump. Indication failed PCI for pLAD spontaneous dissection: KUHN-LAD , SVG-diagonal cxr this admission: No acute disease EKG Data: EKG: NSR, LBBB (old) Assessment/Plan Leigh Cornejo is a 62 year old woman with history as above who presents with an enzymatically small NSTEMI. Currently pain free without any hemodynamic instability, ventricular arrhythmias or CHF. - Given plavix 300 mg PO x 1 now then 75 mg po daily for at least a month and preferably a year regardless of revascularization (ordered) - Continue aspirin 81 mg po daily - Continue heparin gtt - Start diltiazem 180 mg po daily for anti-anginal (ordered). She does not tolerate metoprolol, could try atenolol in the future - Continue nitro paste, would start imdur low dose at discharge - Start zetia 10 mg po daily (ordered). Statin allergy. Will consider PCSK9 inhibitor as an outpatient. - Given patients medical background, she is relatively knowledgeable about cardiovascular disease, understands that she had an enzymatically small UT.. She prefers to have a stress test and only reserve cardiac catheterization if absolutely necessary. This will be arranged tomorrow. Thank you for allowing me to participate in the cardiovascular care of this patient. Please do not hesitate to contact me with questions or concerns.
[2017-09-22] MEDS: Diltiazem CD CAP* 180 MG PO SCH (10:32)
[2017-09-22] MEDS: ALPRAZolam TAB* 0.25 MG PO PRN ×2 (11:48→21:06)
--- NOTE | 2017-09-22 15:08 | PN ---
Subjective Date of Service: 09/22/17 Interval History: C/O chest pain radiating to L jaw, L arm. Not SOB. Mild headache from NTG. Chronic back pain, worse in hospital bed. Objective Active Medications: Hydrocodone Bitart/Acetaminophen ([place] 5-325 Tab*) 2 tab PO Q4H PRN PRN Reason: PAIN Last Admin: 09/22/17 09:57 Dose: 2 tab Al Hydrox/Mg Hydrox/Simethicone (Maalox Plus*) 30 ml PO Q4H PRN PRN Reason: INDIGESTION Alprazolam (Xanax Tab*) 0.25 mg PO Q6H PRN PRN Reason: ANXIETY Last Admin: 09/22/17 11:48 Dose: 0.25 mg Ascorbic Acid (Vitamin C Tab*) 500 mg PO QAM [facility] Last Admin: 09/22/17 08:17 Dose: 500 mg Aspirin (Aspirin 81 Mg Chew Tab*) 81 mg PO QAM [facility] Last Admin: 09/22/17 08:18 Dose: 81 mg Bupropion HCl (Wellbutrin Xl *) 150 mg PO DAILY [facility] PRN Reason: Protocol Last Admin: 09/22/17 09:56 Dose: 150 mg Cetirizine HCl (Zyrtec*) 10 mg PO QAM [facility] Last Admin: 09/22/17 09:57 Dose: 10 mg Clopidogrel Bisulfate (Plavix Tab*) 75 mg PO DAILY [facility] Dextrose (D50w Syringe 50 Ml*) 12.5 gm IV PUSH .FOR FS < 60 - SS PRN PRN Reason: FS < 60 Diltiazem HCl (Cardizem Cd Cap*) 180 mg PO DAILY [facility] Last Admin: 09/22/17 10:32 Dose: 180 mg Diphenhydramine HCl (Benadryl Po*) 50 mg PO BEDTIME [facility] Last Admin: 09/21/17 21:43 Dose: 50 mg Docusate Sodium (Colace Cap*) 100 mg PO BID [facility] Last Admin: 09/22/17 08:18 Dose: 100 mg Ezetimibe (Zetia Tab*) 10 mg PO 1700 [facility] Heparin Sodium/Dextrose (Heparin Drip 25,000 Units(*)) 25,000 units in 500 mls @ 0 mls/hr IV PER RATE SERGIO; Per Protocol PRN Reason: Protocol Last Admin: 09/22/17 03:23 Dose: 19 mls/hr Ibuprofen (Advil Tab*) 800 mg PO BID PRN PRN Reason: FEVER/PAIN Insulin Human Lispro (Humalog*) 0 units SUBCUT AC [facility] PRN Reason: Protocol Last Admin: 09/22/17 11:30 Dose: Not Given Levothyroxine Sodium (Synthroid Tab*) 150 mcg PO DAILY@0600 [facility] Last Admin: 09/22/17 05:17 Dose: 150 mcg Nitroglycerin (Nitroglycerin Tab 0.4 Mg*) 0.4 mg SL Q5M PRN PRN Reason: ANGINA Last Admin: 09/22/17 10:32 Dose: 0.4 mg Nitroglycerin (Nitroglycerin 2% Oint*) 1 inch TOPICAL Q6H [facility] PRN Reason: Protocol Pantoprazole Sodium (Protonix Tab (Nf)) 40 mg PO QAM@0730 [facility] Quetiapine Fumarate (Seroquel Tab*) 25 mg PO BEDTIME [facility] Last Admin: 09/21/17 21:43 Dose: 25 mg Sertraline HCl (Zoloft*) 50 mg PO QAM [facility] Last Admin: 09/22/17 08:18 Dose: 50 mg Tizanidine HCl (Zanaflex Tab*) 4 mg PO TID PRN PRN Reason: SPASMS - MUSCLE Vital Signs - 8 hr 09/22/17 09/22/17 09/22/17 07:10 07:30 09:57 Temperature 97.4 F Pulse Rate 58 Respiratory 17 16 17 Rate Blood Pressure 103/66 (mmHg) O2 Sat by Pulse 95 Oximetry 09/22/17 09/22/17 09/22/17 10:31 11:21 11:48 Temperature 98.0 F 97.7 F Pulse Rate 68 70 Respiratory 18 16 20 Rate Blood Pressure 117/66 132/71 (mmHg) O2 Sat by Pulse 96 97 Oximetry 09/22/17 09/22/17 11:52 13:40 Temperature Pulse Rate Respiratory 20 18 Rate Blood Pressure (mmHg) O2 Sat by Pulse Oximetry Oxygen Devices in Use Now: None Appearance: Alert, partly up in bed. In fair spirits. Looks uncomfortable. Eyes: No Scleral Icterus Neck: NL Appearance and Movements; NL JVP, No Thyroid Enlargement, Masses Respiratory: Symmetrical Chest Expansion and Respiratory Effort, Clear to Auscultation, Clear to Percussion Cardiovascular: NL Sounds; No Murmurs; No JVD, RRR, No Edema Extremities: No Edema, No Clubbing, Cyanosis, - Skin: No Rash or Ulcers, No Nodules or Sclerosis Neurological: Alert and Oriented x 3, NL Sensation Result Diagrams: 09/22/17 06:43 09/22/17 06:43 Additional Lab and Data: Lab Results 09/21/17 09/21/17 09/21/17 Range/Units 15:56 15:56 15:56 WBC 8.0 (3.5-10.8) 10^3/ul RBC 4.44 (4.0-5.4) 10^6/ul Hgb 14.2 (12.0-16.0) g/dl Hct 41 (35-47) % MCV 92 (80-97) fL MCH 32 H (27-31) pg MCHC 35 (31-36) g/dl RDW 14 (10.5-15) % Plt Count 212 (150-450) 10^3/ul MPV 7.6 (7.4-10.4) um3 Neut % (Auto) 72.9 (38-83) % Lymph % (Auto) 18.9 L (25-47) % [place] % (Auto) 7.2 H (0-7) % Eos % (Auto) 0.7 (0-6) % Baso % (Auto) 0.3 (0-2) % Absolute Neuts (auto) 5.8 (1.5-7.7) 10^3/ul Absolute Lymphs (auto) 1.5 (1.0-4.8) 10^3/ul Absolute Monos (auto) 0.6 (0-0.8) 10^3/ul Absolute Eos (auto) 0.1 (0-0.6) 10^3/ul Absolute Basos (auto) 0 (0-0.2) 10^3/ul Absolute Nucleated RBC 0 10^3/ul Nucleated RBC % 0 INR (Anticoag Therapy) (0.77-1.02) APTT (26.0-36.3) seconds D-Dimer, Quantitative (Less Than 230) ng/mL Sodium 137 L (139-145) mmol/L Potassium 4.2 (3.5-5.0) mmol/L Chloride 105 (101-111) mmol/L Carbon Dioxide 22 (22-32) mmol/L Anion Gap 10 (2-11) mmol/L BUN 23 (6-24) mg/dL Creatinine 0.95 (0.51-0.95) mg/dL Est GFR ( Amer) 77.2 (>60) Est GFR (Non-Af Amer) 60.0 (>60) BUN/Creatinine Ratio 24.2 H (8-20) Glucose 104 H (70-100) mg/dL Lactic Acid 1.9 (0.5-2.0) mmol/L Calcium 9.1 (8.6-10.3) mg/dL Magnesium 1.9 (1.9-2.7) mg/dL Total Bilirubin 0.50 (0.2-1.0) mg/dL AST 14 (13-39) U/L ALT 14 (7-52) U/L Alkaline Phosphatase 46 (34-104) U/L Total Creatine Kinase 70 (10-223) U/L CK-MB (CK-2) 1.5 (0.6-6.3) ng/mL Troponin I 0.04 H* (<0.04) ng/mL B-Natriuretic Peptide ( - 100) pg/mL Total Protein 6.9 (6.4-8.9) g/dL Albumin 3.6 (3.2-5.2) g/dL Globulin 3.3 (2-4) g/dL Albumin/Globulin Ratio 1.1 (1-3) 09/21/17 09/21/17 09/21/17 Range/Units 15:56 15:56 17:19 WBC (3.5-10.8) 10^3/ul RBC (4.0-5.4) 10^6/ul Hgb (12.0-16.0) g/dl Hct (35-47) % MCV (80-97) fL MCH (27-31) pg MCHC (31-36) g/dl RDW (10.5-15) % Plt Count (150-450) 10^3/ul MPV (7.4-10.4) um3 Neut % (Auto) (38-83) % Lymph % (Auto) (25-47) % [place] % (Auto) (0-7) % Eos % (Auto) (0-6) % Baso % (Auto) (0-2) % Absolute Neuts (auto) (1.5-7.7) 10^3/ul Absolute Lymphs (auto) (1.0-4.8) 10^3/ul Absolute Monos (auto) (0-0.8) 10^3/ul Absolute Eos (auto) (0-0.6) 10^3/ul Absolute Basos (auto) (0-0.2) 10^3/ul Absolute Nucleated RBC 10^3/ul Nucleated RBC % INR (Anticoag Therapy) 0.92 (0.77-1.02) APTT 29.2 (26.0-36.3) seconds D-Dimer, Quantitative < 200 (Less Than 230) ng/mL Sodium (139-145) mmol/L Potassium (3.5-5.0) mmol/L Chloride (101-111) mmol/L Carbon Dioxide (22-32) mmol/L Anion Gap (2-11) mmol/L BUN (6-24) mg/dL Creatinine (0.51-0.95) mg/dL Est GFR ( Amer) (>60) Est GFR (Non-Af Amer) (>60) BUN/Creatinine Ratio (8-20) Glucose (70-100) mg/dL Lactic Acid (0.5-2.0) mmol/L Calcium (8.6-10.3) mg/dL Magnesium (1.9-2.7) mg/dL Total Bilirubin (0.2-1.0) mg/dL AST (13-39) U/L ALT (7-52) U/L Alkaline Phosphatase (34-104) U/L Total Creatine Kinase (10-223) U/L CK-MB (CK-2) (0.6-6.3) ng/mL Troponin I 0.06 H* (<0.04) ng/mL B-Natriuretic Peptide 47 ( - 100) pg/mL Total Protein (6.4-8.9) g/dL Albumin (3.2-5.2) g/dL Globulin (2-4) g/dL Albumin/Globulin Ratio (1-3) Assess/Plan/Problems-Billing Assessment: - Patient Problems (1) CAD (coronary artery disease) Current Visit: No Status: Acute Code(s): I25.10 - ATHSCL HEART DISEASE OF [place] CORONARY ARTERY W/O ANG PCTRS SNOMED Code(s): 14058368 Comment: ACS with peak troponin 0.52, recurring chest pain. Diltiazem 180 started 11 AM 09/22. Add NTG paste 1 inch q 6 hr 3 PM 09/22. Repeat troponin 09/23. Continue heparin drip, ASA, clopidogrel, ezetimibe. She had elevated LFT's with a statin, syncope with metoprolol. (2) Hypothyroid Current Visit: Yes Status: Acute Code(s): E03.9 - HYPOTHYROIDISM, UNSPECIFIED SNOMED Code(s): 60937692 Comment: Add on TSH. Continue levothyroxine. (3) GERD (gastroesophageal reflux disease) Current Visit: Yes Status: Acute Code(s): K21.9 - GASTRO-ESOPHAGEAL REFLUX DISEASE WITHOUT ESOPHAGITIS SNOMED Code(s): 363878094 Comment: Continue pantoprazole. (4) LBBB (left bundle branch block) Current Visit: Yes Status: Acute Code(s): I44.7 - LEFT BUNDLE-BRANCH BLOCK, UNSPECIFIED SNOMED Code(s): 03205937 Comment: Present at least since 11/2016. (5) Diabetes Current Visit: Yes Status: Acute Code(s): E11.9 - TYPE 2 DIABETES MELLITUS WITHOUT COMPLICATIONS SNOMED Code(s): 11423720 Comment: Hold metformin. Lispro by SS.
[2017-09-22] MEDS: Nitroglycerin 2% OINT* 1 GM PAK TOPICAL SCH ×2 (15:38→22:00)
[2017-09-22] MEDS: Ezetimibe TAB* 10 MG PO SCH (16:36)
[2017-09-22] MEDS: diPHENhydraMINE PO* 50 MG PO SCH (21:06)
[2017-09-22] MEDS: QUEtiapine TAB* 25 MG PO SCH (21:07)
[2017-09-23] MEDS ORDERED: Acetaminophen TAB* 325 MG PO PRN (00:12)
[2017-09-23] MEDS ORDERED: NS 0.9% 500 ML* 500 ML IV ONE (00:13)
[2017-09-23] MEDS ORDERED: Ondansetron ODT TAB* 4 MG PO PRN (00:46)
[2017-09-23] MEDS: Nitroglycerin 2% OINT* 1 GM PAK TOPICAL SCH ×3 (03:49→15:16)
[2017-09-23] MEDS: Levothyroxine TAB* 150 MCG TAB PO SCH (06:05)
[2017-09-23 06:34] LABS: EGFR Non-African American 58.6 (>60)
[2017-09-23] MEDS: Insulin LISPRO* 1 UNITS UNIT SUBCUT SCH ×3 (08:52→16:47)
[2017-09-23] MEDS ORDERED: Clopidogrel TAB* 75 MG PO SCH (09:00)
[2017-09-23] MEDS: Heparin DRIP 25,000 UNITS(*) 25,000 UNITS/500 ML BAG IV SCH (09:32)
[2017-09-23] MEDS ORDERED: Regadenoson* 0.4 MG/5 ML SYRINGE ONE (10:34)
[2017-09-23] MEDS ORDERED: Aminophylline IV* 25 MG/ML 10 ML VIAL ONE (10:34)
[2017-09-23] MEDS ORDERED: Acetaminophen TAB* 325 MG ONE (10:43)
[2017-09-23] MEDS: Docusate CAP* 100 MG PO SCH (11:36)
[2017-09-23] MEDS: Ascorbic Acid TAB* 500 MG PO SCH (11:36)
[2017-09-23] MEDS: HYDROcodone/ACETAMIN 5-325 MG* 1 TAB PO PRN ×2 (12:13→16:41)
[2017-09-23] MEDS: BuPROPion XL* 150 MG TAB.XL PO SCH (12:17)
[2017-09-23] MEDS: Sertraline* 50 MG TAB PO SCH (12:17)
[2017-09-23] MEDS: ALPRAZolam TAB* 0.25 MG PO PRN (12:17)
[2017-09-23] MEDS: Cetirizine* 10 MG TAB PO SCH (12:21)
--- NOTE | 2017-09-23 12:26 | RAD ---
Edited for charges. Indication: Risk stratification for abnormal EKG Myocardial perfusion scan was performed utilizing 1 day protocol. Rest myocardial perfusion was performed after intravenous injection of 10.2 mCi of technetium 99m tetrofosmin. Pharmacological stress was applied and 24.98 no pericystic technetium 99m tetrofosmin was injected. There is homogeneous distribution of the radiotracer throughout the left ventricle. There is anteroseptal wall photopenia which is persistent on both rest and stress images on the attenuated corrected images. This is likely artifactual and is some areas the rest images appear to be more photopenic than the stress images. No definite reversible change is identified. The ejection fraction at stress is 70%. Evaluation of wall motion demonstrates no focal wall motion abnormalities. IMPRESSION: No definite evidence of reversible change with persistent anteroseptal photopenia which is mild. Ejection fraction of 70% with no definite focal wall motion abnormality. ASSESSMENT: Low risk Based on imaging criteria from ACC/AHA 2002 Guideline Update for the Management of Patients With Chronic Stable Angina Table 23. Noninvasive Risk Stratification. (thallium-201) LOW-RISK (LESS THAN 1% ANNUAL MORTALITY RATE) - Normal or small myocardial perfusion defect at rest or with stress MTDD
[2017-09-23] MEDS: Aspirin 81 mg CHEW TAB* 81 MG TAB.CHEW PO SCH (13:37)
[2017-09-23] MEDS: Diltiazem CD CAP* 180 MG PO SCH (13:37)
[2017-09-23] MEDS: Ezetimibe TAB* 10 MG PO SCH (16:41)
[2017-09-23 17:45] VITALS: BP 109/55
--- NOTE | 2017-10-12 01:34 | DS ---
CC: Dr. Garth Reddy; Eleni Grace NP * DISCHARGE SUMMARY: DATE OF ADMISSION: 09/21/17 DATE OF DISCHARGE: 09/23/17 PRINCIPAL DISCHARGE DIAGNOSIS: Umt-HK-[id number] myocardial infarction. SECONDARY DIAGNOSES: 1. Coronary artery disease. 2. Fibromyalgia with chronic pain syndrome. 3. Spina bifida. 4. Type 2 diabetes. 5. Hypertension. 6. Hypothyroidism. HOSPITAL COURSE BY PROBLEM: 1. NSTEMI: Ms. Padilla presented to the emergency department with chest pain. Please see Linn Lindsey' history and physical for complete description of her history of present illness. Her initial troponin was negative; however, it peaked at 0.52 ultimately. Her EKG showed an old left bundle branch block. She has been followed by Dr. Reddy in the office for intermittent left chest pain; however, she has not been medically optimized due to beta-juan and statin intolerance. In the emergency department, her chest pain resolved with nitroglycerin sublingually. At the time of admission, Dr. Reddy was consulted and he recommended serial troponins. He also discussed the possibility of a left heart catheterization with Ms. Padilla given the elevated risk for coronary artery disease and history of CABG; however, they decided together that a stress test would be preferred and a nuclear stress was completed on 12/04. The nuclear stress test assessment was a low risk study. This enzymatically small NSTEMI was discussed with Ms. Padilla and she preferred to be treated medically and Dr. Reddy agreed with this plan of care. A calcium channel juan was added to her regimen for antianginal effect and Plavix was also a new medication that she is being discharged on. In addition, I have added Imdur for antianginal effect and she will follow up with Dr. Reddy after discharge. She is instructed to return to the emergency department should her chest pain return. 2. Chronic pain syndrome: She takes medical marijuana at home. 3. Diabetes. She was discharged on metformin. 4. Anxiety. She takes alprazolam p.r.n. 5. Hypothyroidism. She was continued on levothyroxine. PHYSICAL EXAMINATION AT THE TIME OF DISCHARGE: Temperature 98 degrees, heart rate 70, respiratory rate 20, pulse ox 94% on room air, and blood pressure 109/ 55. General: Alert, well-appearing female, in no distress. HEENT: Pupils are equal, round, and reactive to light. No nystagmus. Oral mucosa is moist with no pharyngeal exudates or erythemas. Neck: No cervical adenopathy, no JVP is noted. Chest: Regular rate and rhythm. Her PMI is nondisplaced. Lungs: Clear bilaterally. She has a healed sternotomy incision. Abdomen: Soft, nontender, nondistended. No guarding, rebound, or rigidity. Extremities: Strength 5/5. No edema, rashes or ulcers. TIME SPENT: 60 minutes were spent on this discharge with greater than 30 minutes spent [id number] with the patient. [id number]/[facility] #: [id number] [facility]
== END 2017-09-23 18:27 | disposition home or self-care (01) | DRG 282 ==
LOC: ED 14:51 → MEDTELE 17:21 → OBSVTOIN 09-22 15:00
PROVIDERS: ADMIT Internal Medicine; ATTEND Internal Medicine
DX: I21.4 Non-ST elevation (NSTEMI) myocardial infarction (principal); I25.10 Atherosclerotic heart disease of native coronary artery without angina pectoris; E03.9 Hypothyroidism, unspecified; K21.9 Gastro-esophageal reflux disease without esophagitis; I44.7 Left bundle-branch block, unspecified; E11.9 Type 2 diabetes mellitus without complications; M79.7 Fibromyalgia; G89.4 Chronic pain syndrome; I11.9 Hypertensive heart disease without heart failure; F41.9 Anxiety disorder, unspecified; R74.8 Abnormal levels of other serum enzymes; M51.36 Other intervertebral disc degeneration, lumbar region; Z95.1 Presence of aortocoronary bypass graft; Z79.84 Long term (current) use of oral hypoglycemic drugs; Z79.1 Long term (current) use of non-steroidal anti-inflammatories (NSAID); Z79.82 Long term (current) use of aspirin; Z79.899 Other long term (current) drug therapy; Z88.1 Allergy status to other antibiotic agents; Z88.5 Allergy status to narcotic agent; Z88.8 Allergy status to other drugs, medicaments and biological substances; Z91.048 Other nonmedicinal substance allergy status; Z82.49 Family history of ischemic heart disease and other diseases of the circulatory system; Z80.0 Family history of malignant neoplasm of digestive organs; Z87.891 Personal history of nicotine dependence; Q05.9 Spina bifida, unspecified
CPT/HCPCS: 36415; 71045; 78452; 80053; 82550; 82553; 82565; 83605; 83735; 83880; 84443; 84484; 84520; 85025; 85379; 85610; 85730; 93005; 93017; 99283; A9270-GY; A9502; G0378; J0280; J1644; J2785